=== PATIENT | female | born 1935 | race Caucasian/White ===

== ENCOUNTER 2016-07-22 10:33 | Emergency (ER) | payer OTHER ==
--- NOTE | 2016-07-22 11:10 | EDPHY ---
H & P Stated Complaint: enrico falls "off balance" r shoulder r leg pain on eliquis Time Seen by Provider: 07/22/16 10:52 HPI/ROS: CHIEF COMPLAINT: Fall HISTORY OF PRESENT ILLNESS: The patient is an 80-year-old female who comes to the emergency department after a fall last night. She is complaining of right rib and right hip pain. She states that hurts to take a deep breath return. She has been ambulatory. She also had a fall 2 weeks ago and has residual left shoulder pain. She is not able to lift her shoulder above 90 degrees without significant pain. No weakness or numbness. 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 Her daughter states that this is the 4th time she has fallen in last year. She did not hit her head. She did not lose consciousness. She does not have a headache or neck pain. REVIEW OF SYSTEMS: Constitutional: denies: chills, fever, recent illness, recent injury EENTM: denies: blurred vision, double vision, nose congestion Respiratory: denies: cough, shortness of breath Cardiac: denies: chest pain, irregular heart rate, lightheadedness, palpitations Gastrointestinal/Abdominal: denies: abdominal pain, diarrhea, nausea, vomiting, blood streaked stools Genitourinary: denies: dysuria, frequency, hematuria, pain Musculoskeletal: See HPI Skin: denies: lesions, rash, jaundice, bruising Neurological: denies: headache, numbness, paresthesia, tingling, dizziness, weakness Hematologic/Lymphatic: denies: blood clots, easy bleeding, easy bruising Immunologic/allergic: denies: HIV/AIDS, transplant EXAM: GENERAL: Well-appearing, well-nourished and in no acute distress. HEAD: Atraumatic, normocephalic. EYES: Pupils equal round and reactive to light, extraocular movements intact, sclera anicteric, conjunctiva are normal. ENT: TMs normal, nares patent, oropharynx clear without exudates. Moist mucous membranes. NECK: Normal range of motion, supple without lymphadenopathy or JVD. LUNGS: Breath sounds clear to auscultation bilaterally and equal. No wheezes rales or rhonchi. HEART: Regular rate and rhythm without murmurs, rubs or gallops. ABDOMEN: Soft, nontender, normoactive bowel sounds. No guarding, no rebound. No masses appreciated. BACK: No CVA tenderness, no spinal tenderness, step-offs or deformities EXTREMITIES: Pain with elevation of left shoulder. No pain with passive movement. Pain with palpation of right lateral rib cage, no hip pain with palpation or range of motion. NEUROLOGICAL: Cranial nerves II through XII grossly intact. Normal speech, normal gait. 5/5 strength, normal movement in all extremities, normal sensation PSYCH: Normal mood, normal affect. SKIN: Warm, dry, normal turgor, no visible rashes or lesions. Source: Patient, Family Exam Limitations: No limitations - Personal History Current Tetanus/Diphtheria Vaccine: Yes - Medical/Surgical History Hx Asthma: No Hx Chronic Respiratory Disease: No Hx Diabetes: No Hx Cardiac Disease: No Hx Renal Disease: No Hx Cirrhosis: No Hx Alcoholism: No Hx HIV/AIDS: No Hx Splenectomy or Spleen Trauma: No Other PMH: DEGENERATIVE JOINTS/PAIN, arthritis, chronic diarrhea, hypothyroid, L knee replacement, neck/spine surgery, glaucoma, hands reconstructed, appendectomy, glaucoma, bronchial problems, depression, hyperlipidemia/PE - Family History Significant Family History: No pertinent family hx - Social History Smoking Status: Never smoked Alcohol Use: Sober Drug Use: None Constitutional: Initial Vital Signs Temperature (C) 36.8 C 07/22/16 10:38 Heart Rate 75 07/22/16 10:38 Respiratory Rate 18 07/22/16 10:38 Blood Pressure 136/68 H 07/22/16 10:38 O2 Sat (%) 93 07/22/16 10:38 O2 Delivery Mode Room Air Allergies/Adverse Reactions: celecoxib [From Celebrex] Allergy (Severe, Verified 07/22/16 10:36) Hives Penicillins Allergy (Unknown, Verified 07/22/16 10:36) Home Medications: Medication Instructions Recorded Calcium [HI-LUIS M] 500 mg PO DAILY 08/23/15 Cholecalciferol Vit D3 [Vitamin D3 1,000 units PO DAILY 08/23/15 (*)] Fluticasone Propionate [Flovent 50 mcg IH BID 08/23/15 Diskus] Gabapentin [Neurontin 100 MG (*)] 500 mg PO DAILY18 08/23/15 Levothyroxine [Synthroid 112 mcg 112 mcg PO DAILY06 08/23/15 (*)] Loperamide HCl [Anti-Diarrhea] 2 mg PO Q4 PRN 08/23/15 Loratadine/Pseudoephedrine 1 each PO DAILY 08/23/15 [Claritin-D 12 Hour Tablet] Melatonin [Melatonin 3 MG (*)] 3 mg PO HS 08/23/15 Multivitamins [Multivitamin (*)] 1 each PO DAILY 08/23/15 Simvastatin [Zocor] 40 mg PO HS 08/23/15 traMADol [Ultram 50 mg (*)] 100 mg PO TID PRN 08/23/15 FLUoxetine [Prozac 10 MG (*)] 30 mg PO DAILY 08/24/15 Atomoxetine HCl [Strattera] 10 mg PO DAILY 12/27/15 Bimatoprost 0.01% [Lumigan 0.01% 1 drops EACHEYE HS 12/27/15 (*)] Budesonide [Uceris] 9 mg PO DAILY 12/27/15 Fluticasone Nasal [Flonase Nasal 1 sprays NASAL HS 12/27/15 [place]] Apixaban [Eliquis] 5 mg PO BID #0 tab 01/01/16 Apixaban [Eliquis] 10 mg PO BID #24 tab 01/01/16 oxyCODONE IR [Oxycodone Ir (*)] 5 - 10 mg PO Q6 PRN #10 tab 01/01/16 Medical Decision Making - Diagnostics Imaging: X-ray: chest x-ray was obtained. I viewed the images myself on the PACS system. My interpretation of the images is: Right-sided rib fractures. The radiologist interpretation is right-sided rib fractures. X-ray: Left shoulder x-ray was obtained. I viewed the images myself on the PACS system. My interpretation of the images is: Negative for acute injury. The radiologist interpretation is consistent with rotator cuff injury. X-ray: Right hip x-ray was obtained. I viewed the images myself on the PACS system. My interpretation of the images is: Concerning for possible occult hip fracture. The radiologist interpretation is concerning for possible occult hip fracture. Results: CT scan of the hip was obtained. The results of the study are negative. The study was read by Dr. Landeros. I viewed the images myself on the PACS system. X-ray: Left foot x-ray was obtained. I viewed the images myself on the PACS system. My interpretation of the images is: negative for acute disease . The radiologist interpretation is negative. X-ray: Repeat chest x-ray was obtained. I viewed the images myself on the PACS system. My interpretation of the images is: No sign of hemothorax or pneumothorax. The radiologist interpretation is pending. ED Course/Re-evaluation: 1:[address] p[address] we discussed the CT results and the patient is relieved. She has been able to ambulate and go to the bathroom here in the emergency department although she did began complaining of left lateral foot pain pay she states that is hurt for the last 2 weeks since her previous fall. Will obtain x-rays with this as well. 2:15 p.m. we discussed the foot x-ray. The patient is doing well and is eager to go home. She takes tramadol at home for pain as well as Tylenol. I advised her to return if her pain is not controlled or if she develops a fever pneumonia symptoms. Her in her daughter agree with this plan. They declined admission although it was offered. She is motivated to do well at home. 2:20 p.m. I discussed the case with Dr. Marii Peña. She recommended a repeat chest x-ray to rule out hemothorax and if it is negative the patient may go home and follow up with her in the clinic. Patient family agreeable to this plan. 3:00 p.m. we discussed the repeat x-ray results. The patient and family are happy and eager to go home. Differential Diagnosis: Partial list of the Differential diagnosis considered include but were not limited to; rib fracture, pneumothorax, hip fracture, shoulder injury and although unlikely based on the history and physical exam, I also considered acute coronary disease, PE, syncope, head injury, neck injury. I discussed these differential diagnoses and the plan with the patient as well as the usual and expected course. The patient understands that the diagnosis is provisional and that in medicine we are not always correct and that further workup is often warranted. Usual and customary warnings were given. All of the patient's questions were answered. The patient was instructed to return to the emergency department should the symptoms at all worsen or return, otherwise to followup with the physician as we discussed. Departure - Departure Disposition: Home, Routine, Self-Care Clinical Impression: Rib fractures Qualifiers: Encounter type: initial encounter Rib fracture type: multiple ribs Fracture type: closed Laterality: right Qualifier Code: (S22.41XA) Multiple fractures of ribs, right side, initial encounter for closed fracture Condition: Fair Instructions: Rib Fracture in Children (ED), Rib Fracture (ED) Referrals: Yessi Sampson MD [Primary Care Provider] - As per Instructions Marii Peña MD [Medical Doctor] - As per Instructions
--- NOTE | 2016-07-22 11:51 | DX ---
Right Hip , 2 views History: Pain post trauma. Fall last night. Comparison: December 31, 2015 AP pelvis Findings: There is a subtle cortical step-off of the lateral right humeral head that may possibly ind icate a nondisplaced subcapital hip fracture. The femoral head remains rounded and normally located. No pelvic ring or acetabular fracture or hip joint dislocation is identified. There is severe degener ative or remote posttraumatic change along low left lumbar spine at the lumbosacral junction and invo lving the L4-L5 disk space, that are stable since December 31, 2015. Impression: Possible subtle right subcapital hip fracture. Consider CT or MRI for further evaluation. Results called to Logan Oates at 1147 a.m.
--- NOTE | 2016-07-22 12:00 | DX ---
1. Left Shoulder , 3 Views History: Pain post trauma. Fall. Findings: The humeral head is superiorly subluxed in the glenoid and associated with eburnation of th e undersurface of the acromium, consistent with a chronic large rotator cuff tear. There is a large h ypertrophic ridge involving the medial humeral head. The AC joint is normally aligned. No fracture is identified. Impression: 1. No fracture. 2. Superior shoulder subluxation consistent with chronic rotator cuff insufficiency. 2. Chest and Right Ribs (3 views ) History: Pain post trauma. Fall. Findings: PA chest - No evidence of pneumothorax, pleural effusion or pulmonary contusion. The medias tinum is not widened. No obvious rib fracture is identified. There is orthopedic fusion hardware over lying the cervical spine. Right ribs, 2 views-There is buckling of the right lateral 6, 7 and 8th ribs.. There is severe osteoa rthritic narrowing of the right shoulder joint associated with inferior right humeral head osteophyte formation and [id number] of the humeral head and the undersurface of the acromium consistent with rotator cuff insufficiency of uncertain chronicity. There is no eburnation or sclerosis of the acromi um. Impression: 1. Right rib fractures of undetermined age. 2. Right shoulder osteoarthritis with indeterminate age rotator cuff insufficiency.
[2016-07-22 13:26] VITALS: PULSE 82
--- NOTE | 2016-07-22 13:41 | CT ---
CT Pelvis, without contrast, 13:15 History: Right hip pain post fall, possible subtle subcapital right hip fracture Comparison: Plain film x-rays done earlier at 1052 a.m. Findings: No hip or pelvic fracture is identified. There is some mild asymmetrical edema in the fat d eep to the right tensor fascia antoinette. There is no significant hip joint effusion. The pelvic ring is i ntact. There is no pelvic hematoma. There is no SI joint or pubic symphysis malalignment. There is de generative change of the pubic symphysis. There is remote posttraumatic, postoperative and degenerati ve change of the lumbosacral junction and facets. There is mild sigmoid diverticulosis. Impression: No hip fracture identified. Results called to Dr. Oates at 1:38 p.m.
--- NOTE | 2016-07-22 14:04 | DX ---
Left Foot , Three History: Lateral pain x3 weeks post trauma. Fall. Findings: No subacute or healing fracture or malalignment is identified. There is a dorsal calcaneal spur. There is hypertrophic change of the dorsal midfoot. There is degenerative change of the joint b etween the navicular and the 1st cuneiform bone. There is soft tissue calcification superior to the d istal talus. Impression: Chronic degenerative change. Nothing acute or subacute identified to explain lateral pain .
--- NOTE | 2016-07-22 15:02 | DX ---
Chest, PA and Lateral History: Chest trauma, evaluate for hemothorax, pain, fall Comparison: February 15, 2016 Findings: A prior posterior plate of atelectasis has cleared. There is no pneumothorax, pleural fluid , pulmonary contusion or pneumothorax. There is no mediastinal widening or cardiomegaly. There is chr onic tortuosity of the descending thoracic aorta. No rib fracture is identified. There is a chronic t horacolumbar scoliosis with multilevel thoracic degenerative disk disease. There is orthopedic fusion hardware overlying the cervical spine. Both shoulders are superior subluxed relative to the glenoids suggesting rotator cuff insufficiency. Impression: No acute posttraumatic abnormality identified.
[2016-07-22 15:09] VITALS: BP 137/64; RESP 20; TEMP 98.6; O2SAT 94
== END 2016-07-22 15:21 | disposition home or self-care (01) ==
DX: S22.41XA Multiple fractures of ribs, right side, initial encounter for closed fracture (principal); W18.39XA Other fall on same level, initial encounter

== ENCOUNTER → 2016-07-24 | Outpatient (CLI) | payer OTHER ==
--- NOTE | 2016-07-24 10:39 | US ---
Ultrasound Venous Duplex Doppler - Bilateral Legs at 0 948 hours History: I 26.99, previous deep venous thrombosis. Comparison: Ultrasound December 2015 Findings: Ultrasound venous Duplex and Doppler imaging of the bilateral common femoral veins, femoral veins, popliteal veins, calf veins, and greater saphenous vein origins demonstrates normal compressi bility, Duplex color-flow, Doppler flow without deep venous thrombosis. No residual deep venous throm bosis. The right Hollis's cyst measuring 2.4 x 1.8 x 1.2 cm noted. Impression: 1. No deep venous thrombosis bilateral legs. 2. Right Hollis's cyst.
== END ==
LOC: BMCIMAGING 09:08
PROVIDERS: ATTEND Internal Medicine
DX: Z09 Encounter for follow-up examination after completed treatment for conditions other than malignant neoplasm (principal); Z86.718 Personal history of other venous thrombosis and embolism; M71.21 Synovial cyst of popliteal space [Baker], right knee

== ENCOUNTER → 2016-08-17 | Outpatient (CLI) | payer OTHER | LOC: BMCIMAGING 14:31 | PROVIDERS: ATTEND Physician Assistant | DX: R19.7 Diarrhea, unspecified (principal); M51.36 Other intervertebral disc degeneration, lumbar region; M16.9 Osteoarthritis of hip, unspecified ==

== ENCOUNTER 2016-09-03 04:58 | Inpatient (IN) | payer OTHER ==
--- NOTE | 2016-09-03 06:39 | EDPHY ---
H & P Stated Complaint: fall and reports hitting head, AMS, from [facility] Source: Patient, EMS, Old records - Personal History Current Tetanus/Diphtheria Vaccine: Unsure Current Tetanus Diphtheria and Acellular Pertussis (TDAP): Unsure - Medical/Surgical History Hx Asthma: No Hx Chronic Respiratory Disease: No Hx Diabetes: No Hx Cardiac Disease: No Hx Renal Disease: No Hx Cirrhosis: No Hx Alcoholism: No Hx HIV/AIDS: No Hx Splenectomy or Spleen Trauma: No Other PMH: DEGENERATIVE JOINTS/PAIN, arthritis, chronic diarrhea, hypothyroid, L knee replacement, neck/spine surgery, glaucoma, hands reconstructed, appendectomy, glaucoma, bronchial problems, depression, hyperlipidemia/PE - Social History Smoking Status: Never smoked <Gay Morton - Last Filed: 09/03/16 07:38> <Annette Chavez - Last Filed: 09/04/16 14:31> Time Seen by Provider: 09/03/16 05:09 HPI/ROS: HPI The patient presents brought in by ambulance after a fall in which she hit her head. She lives at [facility] in independent living. Apparently tonight before going to bed she took tramadol hand Valium. She was unable to fall asleep so she took an additional pill of Valium. She got up to go to the bathroom on the phone fell and hit her head. She denies losing any consciousness. She pressed her medical alert button and 911 was called. She has not had any nausea, vomiting, vision changes. She does feel very tired. REVIEW OF SYSTEMS Constitutional: No fever, no chills. Eyes: No discharge. ENT: No sore throat. Cardiovascular: No chest pain, no palpitations. Respiratory: No cough, no shortness of breath. Gastrointestinal: No abdominal pain, no vomiting. Genitourinary: No hematuria. Musculoskeletal: No back pain. Skin: No rashes. Neurological: No headache. PMHx: Frequent falls, was previously on Eliquis though now is not on any anticoagulants Soc Hx: Lives in an independent living facility PHYSICAL General Appearance: Somewhat sleepy, no distress Eyes: Pupils equal and round no pallor or injection ENT, Mouth: Mucous membranes moist Respiratory: There are no retractions, lungs are clear to auscultation Cardiovascular: Regular rate and rhythm Gastrointestinal: Abdomen is soft and non-tender, no masses, bowel sounds normal Neurological: A&O, moves all extremities Skin: Warm and dry, no rashes Musculoskeletal: Neck is supple non tender Extremities: symmetrical, full range of motion Psychiatric: Patient is oriented X 3, there is no agitation (Gay Morton) Constitutional: Initial Vital Signs Temperature (C) 36.8 C 09/03/16 05:20 Heart Rate 82 09/03/16 05:20 Respiratory Rate 14 09/03/16 05:20 Blood Pressure 125/70 H 09/03/16 05:20 O2 Sat (%) 94 09/03/16 05:20 O2 Delivery Mode Nasal Cannula O2 (L/minute) 2 Allergies/Adverse Reactions: celecoxib [From Celebrex] Allergy (Severe, Verified 07/22/16 10:36) Hives Penicillins Allergy (Unknown, Verified 07/22/16 10:36) Home Medications: Medication Instructions Recorded Fluticasone Propionate [Flovent 100 mcg IH BID 08/23/15 Diskus] Gabapentin [Neurontin 100 MG (*)] 500 mg PO HS 08/23/15 traMADol [Ultram 50 mg (*)] 50 mg PO Q4 PRN 08/23/15 Aspirin [Aspirin 81mg (*)] 81 mg PO DAILY 09/03/16 Bimatoprost 0.01% [Lumigan 0.01% 1 drops EACHEYE HS 09/03/16 (*)] Budesonide [Uceris] 9 mg PO DAILY 09/03/16 Eluxadoline [Viberzi] 100 mg PO BID 09/03/16 Herbals/Supplements -Info Only 1 ea PO DAILY 09/03/16 Levothyroxine [Synthroid 100 mcg 100 mcg PO DAILY06 09/03/16 (*)] Multivitamins [Multivitamin (*)] 1 each PO DAILY 09/03/16 Simvastatin 40 mg PO HS 09/03/16 Zolpidem Tartrate [Ambien 5MG (*)] 5 - 10 mg PO HS PRN 09/03/16 Medical Decision Making <Gay Morton - Last Filed: 09/03/16 07:38> <Annette Chavez - Last Filed: 09/04/16 14:31> - Diagnostics EKG Interpretation: EKG: Complete interpretation has been separately recorded in the [facility] archive. Summary impression: Normal sinus rhythm (Gay Morton) Imaging: CT head shows no acute injury, discussed with Dr. Dobbins of Radiology. (Gay Morton) ED Course/Re-evaluation: 6:40 a.m.- The patient was re-evaluated, she continues to feel sleepy though is oriented. Her CT head is unremarkable. We will continue to monitor her. 7:00 a.m.- The patient's daughter is now at the bedside. She says that the patient has had a cough for the last day and said that she felt unwell. I will plan on checking some basic lab testing given this information. I feel her symptoms are likely related to her taking too much of her sleeping medication which turns out is Ambien it appears she had 10 mg instead of her usual 5. She actually did not take Valium. (Gay Morton) 0927: Re-evaluation. Patient is somewhat more alert, but is still drowsy. She is answering questions, but then quickly falls back to sleep. She desaturates to 89% off of oxygen. Placed back on 2L. Still too drowsy for discharge safely. 1110: Re-evaluation. The patient is still very drowsy, too drowsy to return to home safely. Oxygen saturation is 93% on 2L. The patient and her daughter believe that she took an extra Ambien last night. Will admit the patient for further observation. 1118: I consulted with the hospitalist service about the patient's condition. Dr. Ruiz accepts admission. 1124: I called Dr. Akhtar for report of the patient's chest CT. Preliminary report by Dr. Dobbins was negative. (Annette Chavez) Differential Diagnosis: This is an 80-year-old female brought in by ambulance from independent living facility after a fall while using the bathroom tonight. She hit her head. She has a history of frequent falls and did take an extra dose of her Valium earlier in the evening. Differential diagnosis includes intracranial hemorrhage , concussion, medication side effect. (Gay Morton) - Data Points Laboratory Results: Laboratory Results 09/04/16 04:51 09/04/16 04:51 09/04/16 09/04/16 09/03/16 04:51 04:51 15:28 WBC 5.63 10^3/uL 10^3/uL (3.80-9.50) RBC 3.87 10^6/uL L 10^6/uL (4.18-5.33) Hgb 11.9 g/dL L g/dL (12.6-16.3) Hct 36.7 % L % (38.0-47.0) MCV 94.8 fL fL (81.5-99.8) MCH 30.7 pg pg (27.9-34.1) MCHC 32.4 g/dL g/dL (32.4-36.7) RDW 13.7 % % (11.5-15.2) Plt Count 195 10^3/uL 10^3/uL (150-400) MPV 10.2 fL fL (8.7-11.7) Neut % (Auto) 57.3 % % (39.3-74.2) Lymph % (Auto) 23.4 % % (15.0-45.0) Lane % (Auto) 17.1 % H % (4.5-13.0) Eos % (Auto) 1.6 % % (0.6-7.6) Baso % (Auto) 0.4 % % (0.3-1.7) Nucleat RBC Rel Count 0.0 % % (0.0-0.2) Absolute Neuts (auto) 3.23 10^3/uL 10^3/uL (1.70-6.50) Absolute Lymphs (auto) 1.32 10^3/uL 10^3/uL (1.00-3.00) Absolute Monos (auto) 0.96 10^3/uL H 10^3/uL (0.30-0.80) Absolute Eos (auto) 0.09 10^3/uL 10^3/uL (0.03-0.40) Absolute Basos (auto) 0.02 10^3/uL 10^3/uL (0.02-0.10) Absolute Nucleated RBC 0.00 10^3/uL 10^3/uL (0-0.01) Immature Gran % 0.2 % % (0.0-1.1) Immature Gran # 0.01 10^3/uL 10^3/uL (0.00-0.10) Sodium 140 mEq/L mEq/L (134-144) Potassium 3.7 mEq/L mEq/L (3.5-5.2) Chloride 109 mEq/L mEq/L (97-110) Carbon Dioxide 22 mEq/l mEq/l (22-31) Anion Gap 9 mEq/L mEq/L (8-16) BUN 12 mg/dL mg/dL (7-23) Creatinine 1.0 mg/dL mg/dL (0.6-1.0) Estimated GFR 53 Glucose 104 mg/dL H mg/dL (70-100) Calcium 8.1 mg/dL L D mg/dL (8.5-10.4) Resp Viral Panel (PCR) SEE COMMENT Microbiology Results: MICROBIOLOGY 09/03/16 14:17 Urine,Clean Catch Urine Culture - Preliminary Five Or More Norman Types Medications Given: Discontinued Medications Budesonide (Entocort Ec) 9 mg PO DAILY SEVEN Stop: 03/03/17 08:59 Last Admin: 09/04/16 08:27 Dose: 9 mg Heparin Sodium (Porcine) (Heparin Sc Injection) 5,000 unit SC Q8 SEVEN Stop: 03/02/17 13:59 Last Admin: 09/04/16 05:19 Dose: 5,000 unit Sodium Chloride (Ns) 1,000 mls @ 150 mls/hr IV CONT SEVEN Stop: 03/02/17 12:29 Last Admin: 09/04/16 03:18 Dose: 1,000 mls Zolpidem Tartrate (Ambien) 5 mg PO HS SEVEN Stop: 03/02/17 20:59 Last Admin: 09/04/16 01:15 Dose: Not Given Departure <Gay Morton - Last Filed: 09/03/16 07:38> <Annette Chavez - Last Filed: 09/04/16 14:31> - Departure Disposition: [facility] Inpatient Acute Clinical Impression: Fall Qualifiers: Encounter type: initial encounter Qualified Code(s): W19.XXXA - Unspecified fall, initial encounter Head injury Qualifiers: Encounter type: initial encounter Qualified Code(s): S09.90XA - Unspecified injury of head, initial encounter Accidental medication overdose Qualifiers: Encounter type: initial encounter Qualified Code(s): T50.901A - Poisoning by unspecified drugs, medicaments and biological substances, accidental ( unintentional), initial encounter Condition: Fair Report Scribed for: Annette Chavez Report Scribed by: Kenyatta Bolden Date of Report: 09/03/16 Time of Report: 09:28 <Annette Chavez - Last Filed: 09/04/16 14:31>
--- NOTE | 2016-09-03 06:58 | CPEKG ---
Heart Rate: 76 RR Interval: 789 P-R Interval: 176 QRSD Interval: 102 QT Interval: 392 QTC Interval: 441 P Bang[place]: 50 QRS [place]: 7 T Wave [place]: 23 EKG Severity - NORMAL ECG - EKG Impression: SINUS RHYTHM Electronically Signed By: Annette Chavez 03-Sep-2016 11:59:20
[2016-09-03 06:59] LABS: % IMMATURE GRANULYOCYTES 0.2 % (0.0-1.1); ABSOLUTE IMMATURE GRANULOCYTES 0.01 10^3/uL (0.00-0.10); ADD DIFF? NO; ADD MORPH? NO; ADD SCAN? NO; ATYPICAL LYMPHOCYTE FLAG 30 (0-99); FRAGMENT RBC FLAG 0 (0-99); HEMATOCRIT 43.3 % (38.0-47.0); HEMOGLOBIN 13.9 g/dL (12.6-16.3); LEFT SHIFT FLG 0 (0-99); LIPEMIA HEMOLYSIS FLAG 80 (0-99); MEAN CELL HEMOGLOBIN CONCENTR. 32.1 g/dL (32.4-36.7); MEAN CELL VOLUME 93.3 fL (81.5-99.8); MEAN PLATELET VOLUME 10.5 fL (8.7-11.7); PLATELET CLUMPS FLAG 0 (0-99); PLATELET COUNT 240 10^3/uL (150-400); RED BLOOD CELL COUNT 4.64 10^6/uL (4.18-5.33); RED CELL DISTRIBUTION WIDTH 13.9 % (11.5-15.2)
[2016-09-03 07:06] LABS: ALANINE AMINOTRANSFERASE 36 IU/L (9-52); ALBUMIN 4.3 g/dL (3.5-5.0); ALKALINE PHOSPHATASE 75 IU/L (38-126); ANION GAP 13 mEq/L (8-16); ASPARTATE AMINOTRANSFERASE 27 IU/L (14-46); BILIRUBIN,TOTAL 0.7 mg/dL (0.1-1.4); CALCIUM 9.7 mg/dL (8.5-10.4); CARBON DIOXIDE 24 mEq/l (22-31); CHLORIDE 104 mEq/L (97-110); CREATININE 1.2 mg/dL (0.6-1.0); GLOMERULAR FILTRATION RATE 43; GLUCOSE 96 mg/dL (70-100); POTASSIUM 4.2 mEq/L (3.5-5.2); SODIUM 141 mEq/L (134-144); TOTAL PROTEIN 7.3 g/dL (6.3-8.2)
[2016-09-03 07:17] LABS: TROPONIN I < 0.012 ng/mL (0-0.034)
[2016-09-03] MEDS ORDERED: ONDANSETRON DISINTEGRATING 4 MG TAB PO PRN (12:16)
[2016-09-03] MEDS ORDERED: ONDANSETRON 4 MG/2 ML VIAL IVP PRN (12:16)
[2016-09-03 14:16] LABS: COLOR YELLOW; LEUKOCYTE ESTERASE,URINE 2+ (NEGATIVE); NITRITE,URINE NEGATIVE (NEGATIVE)
[2016-09-03 14:20] LABS: BACTERIA TRACE /hpf (NONE SEEN); MUCUS TRACE /lpf (NONE-1+)
[2016-09-03] MEDS ORDERED: traMADol 50 MG TAB PO PRN (14:56)
[2016-09-03] MEDS ORDERED: LIDOCAINE 2% VISCOUS 15 ML UDCUP PO PRN (14:56)
[2016-09-03] MEDS ORDERED: FLUTICASONE PROPIONATE 100 MCG IH SCH (15:00)
[2016-09-03] MEDS ORDERED: ELUXADOLINE 100 MG PO SCH (15:00)
[2016-09-03] MEDS ORDERED: BUDESONIDE 9 MG PO SCH (15:00)
--- NOTE | 2016-09-03 15:01 | PDGENHP ---
History and Physical - Chief Complaint Acute encephalopathy - History of Present Illness Primary care provider: Dr. Sampson HPI: 80-year-old female presenting with acute encephalopathy characterized as somnolence, disorientation, poor responsiveness with associated mechanical fall , pain located in her bilateral shoulders, left greater than right. Patient reports that on the day prior to this presentation, she began feeling fatigued, experiencing soreness in her throat, nonproductive cough, mild dysuria. She had shoulder pain which she took tramadol 50 mg to alleviate and then she attempted to go to bed. On 09/02 p.m., she had difficulty falling asleep and she subsequently took 10 mg of Ambien. The patient reports that she does not take Ambien regularly but has taken it in the past as a sleep aid, usually 5 mg. Overnight, the patient attempted to use the bathroom and she experienced acute mechanical fall. She contacted the medical staff at [facility] the patient was transported to our emergency department. At that time, she was minimally responsive and her level of responsiveness has been improving throughout the course of today. History Information - Allergies/Home Medication List Allergies/Adverse Reactions: celecoxib [From Celebrex] Allergy (Severe, Verified 07/22/16 10:36) Hives Penicillins Allergy (Unknown, Verified 07/22/16 10:36) Home Medications: Fluticasone Propionate [Flovent Diskus] 100 mcg IH BID 08/23/15 [Last Taken 12/01 21:00] Gabapentin [Neurontin 100 MG (*)] 500 mg PO HS 08/23/15 [Last Taken 08/22/15 18: 00] traMADol [Ultram 50 mg (*)] 50 mg PO Q4 PRN 08/23/15 [Last Taken 12/27/15] Aspirin [Aspirin 81mg (*)] 81 mg PO DAILY 09/03/16 [Last Taken Unknown] Bimatoprost 0.01% [Lumigan 0.01% (*)] 1 drops EACHEYE HS 09/03/16 [Last Taken Unknown] Budesonide [Uceris] 9 mg PO DAILY 09/03/16 [Last Taken Unknown] Eluxadoline [Viberzi] 100 mg PO BID 09/03/16 [Last Taken Unknown] Herbals/Supplements -Info Only 1 ea PO DAILY 09/03/16 [Last Taken Unknown] Levothyroxine [Synthroid 100 mcg (*)] 100 mcg PO DAILY06 09/03/16 [Last Taken Unknown] Multivitamins [Multivitamin (*)] 1 each PO DAILY 09/03/16 [Last Taken Unknown] Simvastatin 40 mg PO HS 09/03/16 [Last Taken Unknown] Zolpidem Tartrate [Ambien 5MG (*)] 5 - 10 mg PO HS PRN 09/03/16 [Last Taken Unknown] I have personally reviewed and updated: family history, medical history, social history, surgical history - Past Medical History Additional medical history: Pulmonary embolism and deep venous thrombosis in December of 2015 with 6 subsequent months of Eliquis and then discontinued after negative lower extremity ultrasound in July of 2016 as well as numerous mechanical falls. Nocturnal hypoxia. Glaucoma. Chronic diarrhea. Osteoarthritis, left greater than right shoulder - Surgical History Additional surgical history: Next surgery, spine surgery, left total knee replacement, breast lumpectomy - Family History Additional family history: Venous thromboembolism - Social History Smoking Status: Never smoked Alcohol Use: Occasionally Drug Use: None Additional social history: Lives in the [facility] Review of Systems ROS: 10pt was reviewed & negative except for what was stated in HPI & below Constitutional: Reports: fever, malaise, weakness EENMT: Reports: sore throat Respiratory: Reports: cough Genitourinary: Reports: dysuria Physical Exam Temp Pulse Resp BP Pulse Ox 38 C 97 19 139/79 H 94 09/03/16 14:42 09/03/16 14:42 09/03/16 14:42 09/03/16 12:17 09/03/16 14:42 O2 (L/minute) 2 Constitutional: no apparent distress, appears nourished, uncomfortable Eyes: PERRL, anicteric sclera, EOMI Ears, Nose, Mouth, Throat: moist mucous membranes, hearing normal, ears appear normal, no oral mucosal ulcers Cardiovascular: tachycardia, No systolic murmur, No irregularly irregular, No edema Respiratory: no respiratory distress, no rales or rhonchi, clear to auscultation , other (No upper airway stridor or wheezing) Gastrointestinal: normoactive bowel sounds, soft, non-tender abdomen, no palpable masses Genitourinary: no bladder fullness, No no bladder tenderness (Suprapubic tenderness to palpation) Skin: warm, normal color, no rashes or abrasions, no fluctuance, no induration, No mottled Neurologic: sensation intact bilaterally, other (Alert awake oriented x2 to person and place only), No weakness (Motor strength 5/5 bilateral upper and lower extremities), No facial droop Psychiatric: other (Lethargic but arousable, concentration is 7/7), No not anxious, No agitated (Lethargic but arousable) Lymph, Heme, Immunologic: other (Tender bilateral anterior cervical lymph nodes without any lymphadenopathy or posterior cervical lymph nodes) Lab Data & Imaging Review 09/03/16 05:15 09/03/16 05:15 WBC 5.93 10^3/uL (3.80-9.50) 09/03/16 05:15 RBC 4.64 10^6/uL (4.18-5.33) 09/03/16 05:15 Hgb 13.9 g/dL (12.6-16.3) 09/03/16 05:15 Hct 43.3 % (38.0-47.0) 09/03/16 05:15 MCV 93.3 fL (81.5-99.8) 09/03/16 05:15 MCH 30.0 pg (27.9-34.1) 09/03/16 05:15 MCHC 32.1 g/dL (32.4-36.7) L 09/03/16 05:15 RDW 13.9 % (11.5-15.2) 09/03/16 05:15 Plt Count 240 10^3/uL (150-400) 09/03/16 05:15 MPV 10.5 fL (8.7-11.7) 09/03/16 05:15 Neut % (Auto) 59.2 % (39.3-74.2) 09/03/16 05:15 Lymph % (Auto) 24.1 % (15.0-45.0) 09/03/16 05:15 Braxton % (Auto) 13.2 % (4.5-13.0) H 09/03/16 05:15 Eos % (Auto) 3.0 % (0.6-7.6) 09/03/16 05:15 Baso % (Auto) 0.3 % (0.3-1.7) 09/03/16 05:15 Nucleat RBC Rel Count 0.0 % (0.0-0.2) 09/03/16 05:15 Absolute Neuts (auto) 3.51 10^3/uL (1.70-6.50) 09/03/16 05:15 Absolute Lymphs (auto) 1.43 10^3/uL (1.00-3.00) 09/03/16 05:15 Absolute Monos (auto) 0.78 10^3/uL (0.30-0.80) 09/03/16 05:15 Absolute Eos (auto) 0.18 10^3/uL (0.03-0.40) 09/03/16 05:15 Absolute Basos (auto) 0.02 10^3/uL (0.02-0.10) 09/03/16 05:15 Absolute Nucleated RBC 0.00 10^3/uL (0-0.01) 09/03/16 05:15 Immature Gran % 0.2 % (0.0-1.1) 09/03/16 05:15 Immature Gran # 0.01 10^3/uL (0.00-0.10) 09/03/16 05:15 Sodium 141 mEq/L (134-144) 09/03/16 05:15 Potassium 4.2 mEq/L (3.5-5.2) 09/03/16 05:15 Chloride 104 mEq/L (97-110) 09/03/16 05:15 Carbon Dioxide 24 mEq/l (22-31) 09/03/16 05:15 Anion Gap 13 mEq/L (8-16) 09/03/16 05:15 BUN 21 mg/dL (7-23) 09/03/16 05:15 Creatinine 1.2 mg/dL (0.6-1.0) H 09/03/16 05:15 Estimated GFR 43 09/03/16 05:15 Glucose 96 mg/dL (70-100) 09/03/16 05:15 Calcium 9.7 mg/dL (8.5-10.4) 09/03/16 05:15 Total Bilirubin 0.7 mg/dL (0.1-1.4) 09/03/16 05:15 AST 27 IU/L (14-46) 09/03/16 05:15 ALT 36 IU/L (9-52) 09/03/16 05:15 Alkaline Phosphatase 75 IU/L (38-126) 09/03/16 05:15 Troponin I < 0.012 ng/mL (0-0.034) 09/03/16 05:15 Total Protein 7.3 g/dL (6.3-8.2) 09/03/16 05:15 Albumin 4.3 g/dL (3.5-5.0) 09/03/16 05:15 Urine Color YELLOW 09/03/16 14:08 Urine Appearance HAZY 09/03/16 14:08 Urine pH 5.0 (5.0-7.5) 09/03/16 14:08 Ur Specific Catlett 1.025 (1.002-1.030) 09/03/16 14:08 Urine Protein NEGATIVE (NEGATIVE) 09/03/16 14:08 Urine Ketones NEGATIVE (NEGATIVE) 09/03/16 14:08 Urine Blood NEGATIVE (NEGATIVE) 09/03/16 14:08 Urine Nitrate NEGATIVE (NEGATIVE) 09/03/16 14:08 Urine Bilirubin NEGATIVE (NEGATIVE) 09/03/16 14:08 Urine Urobilinogen NEGATIVE EU (0.2-1.0) 09/03/16 14:08 Ur Leukocyte Esterase 2+ (NEGATIVE) H 09/03/16 14:08 Urine RBC 5-10 /hpf (0-3) H 09/03/16 14:08 Urine WBC 5-10 /hpf (0-3) H 09/03/16 14:08 Ur Epithelial Cells TRACE /lpf (NONE-1+) 09/03/16 14:08 Urine Bacteria TRACE /hpf (NONE SEEN) H 09/03/16 14:08 Hyaline Casts 5-15 /lpf (0-1) 09/03/16 14:08 Urine Mucus TRACE /lpf (NONE-1+) 09/03/16 14:08 Ur Culture Indicated? INDICATED (NI) H 09/03/16 14:08 Urine Glucose NEGATIVE (NEGATIVE) 09/03/16 14:08 Visualized and Interpreted EKG results: Yes EKG Interpretation: Positive for: other (Normal sinus rhythm) Assessment & Plan Assessment: 80-year-old female presents with acute encephalopathy in the setting of suspected viral syndrome, possible urinary tract infection Plan: 1. Encephalopathy. Acute, evidenced by global brain dysfunction characterized as disorientation, somnolence, unresponsiveness, acute change from patient's baseline, most likely secondary to the toxic effects of medications including Ambien as well as toxic effects of infection notably viral syndrome and possible UTI -discussed with hospitalist provider Elsa Nash, she has signed out this patient to me for evaluation at this time -head CT demonstrates no intracranial pathology -mental status remains below baseline with degree of disorientation and somnolence -unsafe to medically discharge back [facility] at this time -continue to allow time for Ambien to work of system, hold any further Ambien and reduced dose of tramadol and gabapentin 2. Suspected viral syndrome. Acute new problem this provider further workup indicated. Patient most likely has a URI with tachycardia and fever as well as sore throat and cough and no evidence of acute reactive airways -supportive care with guaifenesin/dextromethorphan, Tessalon Perles, Mucinex, IV fluids -get a respiratory viral panel to evaluate for flu -monitor CBC and monitor for signs of sepsis 3. Possible urinary tract infection. Evidenced by dysuria and mildly positive urinalysis, history of urinary tract infection back in August of 2015 -get urine culture -empirically give 1 g of IV ceftriaxone given her current tachycardia and fever 4. Acute kidney injury. Most likely hypovolemic, give IV fluids, repeat serum creatinine level 5. Atelectasis. Acute, present on chest CT, provide incentive spirometer, most likely secondary to somnolence 6. Unintentional overdose. Patient to combination of tramadol and Ambien, dose is higher than her norm, both are most likely contributing to her present mental status, reduced dosage of tramadol and gabapentin, hold Ambien 7. History of venous thromboembolism. Review of outside records including [address] Mayen, reporting patient had a pulmonary embolism secondary to deep venous thrombosis resulting in respiratory failure, requiring Eliquis. -ultrasound from July of 2016 demonstrates no evidence of persistent DVT, currently off of systemic anticoagulation given high risk of falls Diet. Regular Prophylaxis. High risk patient, heparin subcu Code. Full per patient, her daughter is her MPOA Disposition. Anticipated discharge is 09/04/2016, pending further workup of conditions outlined above as well as clinical improvement. If patient's clinical condition worsens, she will be reassessed on 09/04 and may require upgraded to inpatient admission status at that time.
[2016-09-03] MEDS: HEPARIN 5,000 UNIT/0.5 ML SYR SC SCH ×2 (15:58→20:55)
[2016-09-03] MEDS: CIPROFLOXACIN 200 MG/DEXTROSE 100 ML IV SCH ×2 (15:58→20:54)
[2016-09-03] MEDS: GUAIFENESIN/DM 10 ML UDCUP PO PRN (16:35)
[2016-09-03] MEDS: guaiFENesin 600 MG TAB.ER PO SCH ×2 (16:36→20:54)
[2016-09-03] MEDS: BENZONATATE 100 MG CAP PO PRN ×2 (16:36→20:54)
[2016-09-03] MEDS: LEVOTHYROXINE 100 MCG TAB PO SCH (16:36)
[2016-09-03] MEDS: ACETAMINOPHEN 325 MG TAB PO PRN (16:37)
[2016-09-03] MEDS: FLUTICASONE HFA 110 MCG MDI IH SCH (20:27)
[2016-09-03] MEDS ORDERED: ZOLPIDEM TARTRATE 5 MG TAB PO PRN (20:50)
[2016-09-03] MEDS: GABAPENTIN 100 MG CAP PO SCH (20:54)
[2016-09-03] MEDS: ATORVASTATIN CALCIUM 20 MG TAB PO SCH (20:54)
[2016-09-03] MEDS: NS 1,000 ML IV SCH (20:57)
[2016-09-03] MEDS ORDERED: NON-FORMULARY NEW DRUG (Simvastatin [Simvastatin] 40 MG) PO SCH (21:00)
[2016-09-03] MEDS ORDERED: ZOLPIDEM TARTRATE 5 MG TAB PO SCH (21:00)
[2016-09-03] MEDS: ELUXADOLINE 100 MG PO SCH (23:35)
[2016-09-04] MEDS: BENZONATATE 100 MG CAP PO PRN ×3 (03:17→21:11)
[2016-09-04] MEDS: GUAIFENESIN/DM 10 ML UDCUP PO PRN ×4 (03:17→21:11)
[2016-09-04] MEDS: NS 1,000 ML IV SCH (03:18)
[2016-09-04] MEDS: HEPARIN 5,000 UNIT/0.5 ML SYR SC SCH (05:19)
[2016-09-04] MEDS: LEVOTHYROXINE 100 MCG TAB PO SCH (05:19)
[2016-09-04] MEDS: ACETAMINOPHEN 325 MG TAB PO PRN ×2 (05:23→15:10)
[2016-09-04 06:06] LABS: % IMMATURE GRANULYOCYTES 0.2 % (0.0-1.1); ABSOLUTE IMMATURE GRANULOCYTES 0.01 10^3/uL (0.00-0.10); ADD DIFF? NO; ADD MORPH? NO; ADD SCAN? NO; ATYPICAL LYMPHOCYTE FLAG 20 (0-99); FRAGMENT RBC FLAG 0 (0-99); HEMATOCRIT 36.7 % (38.0-47.0); HEMOGLOBIN 11.9 g/dL (12.6-16.3); LEFT SHIFT FLG 0 (0-99); LIPEMIA HEMOLYSIS FLAG 80 (0-99); MEAN CELL HEMOGLOBIN 30.7 pg (27.9-34.1); MEAN CELL HEMOGLOBIN CONCENTR. 32.4 g/dL (32.4-36.7); MEAN CELL VOLUME 94.8 fL (81.5-99.8); MEAN PLATELET VOLUME 10.2 fL (8.7-11.7); PLATELET CLUMPS FLAG 0 (0-99); PLATELET COUNT 195 10^3/uL (150-400); RED BLOOD CELL COUNT 3.87 10^6/uL (4.18-5.33); RED CELL DISTRIBUTION WIDTH 13.7 % (11.5-15.2)
[2016-09-04 06:17] LABS: ANION GAP 9 mEq/L (8-16); CALCIUM 8.1 mg/dL (8.5-10.4); CARBON DIOXIDE 22 mEq/l (22-31); CHLORIDE 109 mEq/L (97-110); GLOMERULAR FILTRATION RATE 53; GLUCOSE 104 mg/dL (70-100); POTASSIUM 3.7 mEq/L (3.5-5.2); SODIUM 140 mEq/L (134-144)
[2016-09-04] MEDS: guaiFENesin 600 MG TAB.ER PO SCH ×2 (08:26→21:11)
[2016-09-04] MEDS: MULTIVITAMINS 1 EACH TAB PO SCH (08:26)
[2016-09-04] MEDS: ASPIRIN 81 MG CHEWABLE TAB PO SCH (08:27)
[2016-09-04] MEDS: ELUXADOLINE 100 MG PO SCH ×2 (08:47→19:05)
[2016-09-04] MEDS ORDERED: BUDESONIDE 3 MG EC CAP PO SCH (09:00)
[2016-09-04] MEDS ORDERED: Herbals/Supplements -Info Only PO SCH (09:00)
[2016-09-04] MEDS: CIPROFLOXACIN 200 MG/DEXTROSE 100 ML IV SCH ×2 (09:17→21:11)
[2016-09-04] MEDS: FLUTICASONE HFA 110 MCG MDI IH SCH ×2 (09:55→21:17)
--- NOTE | 2016-09-04 11:03 | HOSPPROG ---
Hospitalist Progress Note Assessment/Plan: Assessment: 80-year-old female presents with acute encephalopathy in the setting of RSV, possible urinary tract infection, c/b acute reactive airway exacerbation Plan: 1. Encephalopathy. Acute, most likely secondary to the toxic effects of medications including Ambien as well as toxic effects of infection -improving s/p tx for possible UTI, IVF -continue to hold ambien, lowered dose of tramadol and gabapentin in short-term 2. RSV. Positive RVP, stimulating reactive airways -supportive care 3. Acute reactive airway exacerbation. Evidenced by bilat late exp wheezes and cough triggered on expiration + hypoxia, worsening today -/ RSV -add pred 40mg daily (D#06/22), add scheduled duonebs -cont guaif/dextro PRN, sarahi PRN, tylenol for chest pain from cough 4. Possible urinary tract infection. Evidenced by dysuria and mildly positive urinalysis, history of urinary tract infection back in August of 2015 -UCx pending -day 2/3 Cipro 5. Acute kidney injury. Most likely hypovolemic, given IV fluids, resolved 6. Atelectasis. Acute, present on chest CT, provided incentive spirometer, most likely secondary to somnolence and inactivity 7. Unintentional overdose. Patient on combination of tramadol and Ambien, dose was higher than her norm, both likely contributed to presentation 8. History of venous thromboembolism. Review of outside records including [address] Mayen, reporting patient had a pulmonary embolism secondary to deep venous thrombosis resulting in respiratory failure, requiring Eliquis. -ultrasound from July of 2016 demonstrates no evidence of persistent DVT, currently off of systemic anticoagulation given high risk of falls Diet. Regular Prophylaxis. High risk patient, lovenox 40 Code. Full per patient, her daughter is her MPOA Disposition. Anticipated discharge uncertain, upgrade to inpatient admission status re: anticipated LOS > 48hrs for reasonable medical necessity including worsening acute reactive airway exacerbation today w/ high risk co-morbid RSV infxn Subjective: Reports ongoing cough overnight, anterior chest discomfort with cough, requiring physical assistance with transfers Objective: Vital Signs Temp Pulse Resp BP Pulse Ox 36.8 C 78 16 112/55 L 94 09/04/16 08:00 09/04/16 09:58 09/04/16 09:58 09/04/16 08:00 09/04/16 09:58 Laboratory Results 09/04/16 04:51 09/04/16 04:51 09/03/16 09/04/16 09/05/16 05:59 05:59 05:59 Intake Total 3350 Output Total 1700 400 Balance 1650 -400 - Time Spent With Patient Time Spent with Patient: greater than 35 minutes Time Spent with Patient: Greater than 35 minutes spent on this patients care, greater than 50% of time spent counseling, educating, and coordinating care regarding the above mentioned plan. - Physical Exam Constitutional: no apparent distress, uncomfortable Cardiovascular: regular rate and rhythym Respiratory: reduced air movement (On expiration), expiratory wheeze (Late), inspiratory crackles (Left base) Neurologic: AAOx3 Psychiatric: interacting appropriately, not anxious, not encephalopathic, thought process linear ICD10 Worksheet Patient Problems: Problems Problem Status Onset Fever Acute Confusion Acute Pneumonia Acute UTI (urinary tract infection) Acute Hypoxemia Acute Weakness Acute Pulmonary embolism Acute Troponin level elevated Acute Fall Acute Head injury Acute
[2016-09-04] MEDS: predniSONE 20 MG TAB PO SCH (11:47)
[2016-09-04] MEDS: ENOXAPARIN 40 MG/0.4 ML SYR SC SCH ×2 (11:48→14:53)
[2016-09-04] MEDS: IPRATROPIUM/ALBUTEROL 3 ML DEYVIAL IH SCH ×3 (12:21→22:05)
[2016-09-04] MEDS: GABAPENTIN 100 MG CAP PO SCH (21:11)
[2016-09-04] MEDS: ATORVASTATIN CALCIUM 20 MG TAB PO SCH (21:12)
[2016-09-04] MEDS: BIMATOPROST 0.01% 2.5 ML OPHT.BTL EACHEYE SCH (21:25)
[2016-09-05] MEDS: GUAIFENESIN/DM 10 ML UDCUP PO PRN ×5 (02:48→23:59)
[2016-09-05] MEDS: ACETAMINOPHEN 325 MG TAB PO PRN ×2 (02:48→09:53)
[2016-09-05 05:34] LABS: ANION GAP 10 mEq/L (8-16); CALCIUM 8.7 mg/dL (8.5-10.4); CARBON DIOXIDE 18 mEq/l (22-31); CHLORIDE 114 mEq/L (97-110); CREATININE 0.8 mg/dL (0.6-1.0); GLOMERULAR FILTRATION RATE > 60; GLUCOSE 118 mg/dL (70-100); POTASSIUM 3.1 mEq/L (3.5-5.2); SODIUM 142 mEq/L (134-144)
[2016-09-05] MEDS: LEVOTHYROXINE 100 MCG TAB PO SCH (05:50)
[2016-09-05] MEDS: IPRATROPIUM/ALBUTEROL 3 ML DEYVIAL IH SCH ×4 (06:10→21:59)
[2016-09-05] MEDS ORDERED: POTASSIUM CL 20 MEQ/15 ML UDCUP PO ONE (09:40)
--- NOTE | 2016-09-05 09:45 | HOSPPROG ---
Hospitalist Progress Note Assessment/Plan: 80-year-old female presents with acute encephalopathy in the setting of RSV, possible urinary tract infection, c/b acute reactive airway exacerbation Plan: 1. Encephalopathy. Resolved -most likely secondary to the toxic effects of medications including Ambien as well as toxic effects of infection -continue to hold ambien, lowered dose of tramadol and gabapentin in short-term 2. RSV. Positive RVP, stimulating reactive airways -supportive care 3. Acute reactive airway exacerbation/Acute Bronchitis. Evidenced by bilat late exp wheezes and cough triggered on expiration + hypoxia -2/2 RSV -pred 40mg daily (D#2/5), add scheduled duonebs -cont guaif/dextro PRN, sarahi PRN, tylenol for chest pain from cough -Cipro per below 4. Possible urinary tract infection. Evidenced by dysuria and mildly positive urinalysis, history of urinary tract infection back in August of 2015 -day 3/5 Cipro 5. Acute kidney injury. Most likely hypovolemic, given IV fluids, resolved 6. Atelectasis. Acute, present on chest CT, provided incentive spirometer, most likely secondary to somnolence and inactivity 7. Unintentional overdose. Patient on combination of tramadol and Ambien, dose was higher than her norm, both likely contributed to presentation 8. History of venous thromboembolism. Review of outside records including [address] Mayen, reporting patient had a pulmonary embolism secondary to deep venous thrombosis resulting in respiratory failure, requiring Eliquis. -ultrasound from July of 2016 demonstrates no evidence of persistent DVT, currently off of systemic anticoagulation given high risk of falls 9. Insomnia: will cont to hold Ambien. Will provide for low dose Ativan PRN insomnia. Diet. Regular Prophylaxis. High risk patient, lovenox 40 Code. Full per patient, her daughter is her MPOA Disposition. Still very symptomatic. + cough, SOB, weak. She is not safe to return home yet. She will be managed overnight. Anticipate d/c possibly tomorrow. Subjective: Still with cough, SOB, supplemental O2, and weakness. Afebrile Objective: Vital Signs Temp Pulse Resp BP Pulse Ox 36.7 C 78 18 96/50 L 93 09/05/16 07:34 09/05/16 07:34 09/05/16 07:34 09/05/16 07:34 09/05/16 07:34 Laboratory Results 09/05/16 04:41 09/04/16 09/05/16 09/06/16 05:59 05:59 05:59 Intake Total 1500 Output Total 700 Balance 800 - Physical Exam Constitutional: no apparent distress, appears nourished Eyes: PERRL, EOMI Ears, Nose, Mouth, Throat: moist mucous membranes, hard of hearing, No hearing normal Cardiovascular: regular rate and rhythym, No JVD Respiratory: reduced air movement, No no respiratory distress, No no rales or rhonchi, No clear to auscultation Gastrointestinal: normoactive bowel sounds, soft, non-tender abdomen, no palpable masses Genitourinary: no bladder fullness, no renal bruits Skin: warm, normal color Musculoskeletal: generalized weakness Neurologic: AAOx3, No facial droop Psychiatric: interacting appropriately, not anxious, not encephalopathic Lymph, Heme, Immunologic: no cervical LAD, No lymphadenopathy ICD10 Worksheet Patient Problems: Problems Problem Status Onset Accidental medication overdose Acute Fall Acute Head injury Acute Confusion Acute Fever Acute Hypoxemia Acute Pneumonia Acute Pulmonary embolism Acute Troponin level elevated Acute UTI (urinary tract infection) Acute Weakness Acute
[2016-09-05] MEDS: MULTIVITAMINS 1 EACH TAB PO SCH (09:53)
[2016-09-05] MEDS: predniSONE 20 MG TAB PO SCH (09:53)
[2016-09-05] MEDS: guaiFENesin 600 MG TAB.ER PO SCH ×2 (09:53→20:33)
[2016-09-05] MEDS: ENOXAPARIN 40 MG/0.4 ML SYR SC SCH (09:54)
[2016-09-05] MEDS: ASPIRIN 81 MG CHEWABLE TAB PO SCH (09:54)
[2016-09-05] MEDS: BENZONATATE 100 MG CAP PO PRN ×3 (09:54→20:32)
[2016-09-05] MEDS: ELUXADOLINE 100 MG PO SCH ×2 (09:54→18:10)
[2016-09-05] MEDS: CIPROFLOXACIN 200 MG/DEXTROSE 100 ML IV SCH ×2 (09:55→20:33)
[2016-09-05] MEDS: FLUTICASONE HFA 110 MCG MDI IH SCH ×3 (10:48→20:33)
[2016-09-05] MEDS: GABAPENTIN 100 MG CAP PO SCH (20:33)
[2016-09-05] MEDS: ATORVASTATIN CALCIUM 20 MG TAB PO SCH (20:33)
[2016-09-05] MEDS: BIMATOPROST 0.01% 2.5 ML OPHT.BTL EACHEYE SCH (20:34)
[2016-09-05] MEDS: LORazepam 0.5 MG TAB PO PRN (23:59)
[2016-09-06] MEDS: IPRATROPIUM/ALBUTEROL 3 ML DEYVIAL IH SCH ×4 (04:25→21:18)
[2016-09-06] MEDS: LEVOTHYROXINE 100 MCG TAB PO SCH (05:58)
[2016-09-06] MEDS: GUAIFENESIN/DM 10 ML UDCUP PO PRN ×5 (05:58→22:33)
[2016-09-06] MEDS: BENZONATATE 100 MG CAP PO PRN ×3 (05:59→23:49)
[2016-09-06 06:36] LABS: % IMMATURE GRANULYOCYTES 0.4 % (0.0-1.1); ABSOLUTE IMMATURE GRANULOCYTES 0.03 10^3/uL (0.00-0.10); ADD DIFF? NO; ADD MORPH? NO; ADD SCAN? NO; ATYPICAL LYMPHOCYTE FLAG 20 (0-99); FRAGMENT RBC FLAG 0 (0-99); HEMATOCRIT 35.9 % (38.0-47.0); LEFT SHIFT FLG 0 (0-99); LIPEMIA HEMOLYSIS FLAG 80 (0-99); MEAN CELL HEMOGLOBIN 30.2 pg (27.9-34.1); MEAN CELL HEMOGLOBIN CONCENTR. 33.4 g/dL (32.4-36.7); MEAN CELL VOLUME 90.4 fL (81.5-99.8); MEAN PLATELET VOLUME 9.7 fL (8.7-11.7); PLATELET CLUMPS FLAG 0 (0-99); PLATELET COUNT 234 10^3/uL (150-400); RED BLOOD CELL COUNT 3.97 10^6/uL (4.18-5.33); RED CELL DISTRIBUTION WIDTH 13.7 % (11.5-15.2)
[2016-09-06 07:04] LABS: ANION GAP 10 mEq/L (8-16); CALCIUM 9.2 mg/dL (8.5-10.4); CARBON DIOXIDE 19 mEq/l (22-31); CHLORIDE 115 mEq/L (97-110); CREATININE 0.9 mg/dL (0.6-1.0); GLOMERULAR FILTRATION RATE > 60; GLUCOSE 94 mg/dL (70-100); MAGNESIUM 2.3 mg/dL (1.6-2.3); POTASSIUM 3.7 mEq/L (3.5-5.2); SODIUM 144 mEq/L (134-144)
[2016-09-06] MEDS: FLUTICASONE HFA 110 MCG MDI IH SCH ×2 (09:11→21:21)
[2016-09-06] MEDS: ELUXADOLINE 100 MG PO SCH ×3 (09:46→18:39)
[2016-09-06] MEDS: ASPIRIN 81 MG CHEWABLE TAB PO SCH (09:49)
[2016-09-06] MEDS: MULTIVITAMINS 1 EACH TAB PO SCH (09:49)
[2016-09-06] MEDS: LORazepam 0.5 MG TAB PO PRN ×2 (09:49→23:49)
[2016-09-06] MEDS: CIPROFLOXACIN 200 MG/DEXTROSE 100 ML IV SCH ×2 (09:50→21:28)
[2016-09-06] MEDS: predniSONE 20 MG TAB PO SCH (09:50)
[2016-09-06] MEDS: guaiFENesin 600 MG TAB.ER PO SCH ×2 (09:50→21:28)
--- NOTE | 2016-09-06 12:19 | HOSPPROG ---
Hospitalist Progress Note Assessment/Plan: 80-year-old female presents with acute encephalopathy in the setting of RSV, urinary tract infection, and, acute reactive airway exacerbation. Today she continue to be very symptomatic from a pulm perspective including lots of coughing and SOB. Plan: 1. Encephalopathy. Resolved -most likely secondary to the toxic effects of medications including Ambien as well as toxic effects of infection -continue to hold ambien, lowered dose of tramadol and gabapentin in short-term 2. RSV. Positive RVP, stimulating reactive airways -supportive care 3. Acute reactive airway exacerbation/Acute Bronchitis. Evidenced by bilat late exp wheezes and cough triggered on expiration + hypoxia -2/2 RSV -pred 40mg daily (D#3/5), add scheduled duonebs -cont guaif/dextro PRN, sarahi PRN, tylenol for chest pain from cough -Cipro per below -Still very symptomatic, will keep in the hospital. Her exam is not very impressive and is mostly c/w clear lung bennett 4. Possible urinary tract infection. Evidenced by dysuria and mildly positive urinalysis, history of urinary tract infection back in August of 2015 -day 4/5 Cipro 5. Acute kidney injury. Most likely hypovolemic, given IV fluids, resolved 6. Atelectasis. Acute, present on chest CT, provided incentive spirometer, most likely secondary to somnolence and inactivity 7. Unintentional overdose. Patient on combination of tramadol and Ambien, dose was higher than her norm, both likely contributed to presentation 8. History of venous thromboembolism. Review of outside records including [address] Mayen, reporting patient had a pulmonary embolism secondary to deep venous thrombosis resulting in respiratory failure, requiring Eliquis. -ultrasound from July of 2016 demonstrates no evidence of persistent DVT, currently off of systemic anticoagulation given high risk of falls 9. Insomnia: will cont to hold Ambien. Will provide for low dose Ativan PRN insomnia. 10. Gen Weakness: PT/OT Diet. Regular Prophylaxis. High risk patient, lovenox 40 Code. Full per patient, her daughter is her MPOA Disposition. Still very symptomatic. + cough, SOB, weak. She is not safe to return home yet. She will be managed overnight. Anticipate d/c possibly tomorrow if she has clinical improvement Subjective: cough is worse today than yesterday. Afebrile. No CP, no Leg swelling. Objective: Vital Signs Temp Pulse Resp BP Pulse Ox 36.8 C 94 18 128/72 H 90 L 09/06/16 08:33 09/06/16 09:17 09/06/16 09:17 09/06/16 08:33 09/06/16 09:17 Laboratory Results 09/06/16 06:06 09/06/16 06:06 09/05/16 09/06/16 09/07/16 05:59 05:59 05:59 Intake Total 1500 1150 Output Total 700 1400 Balance 800 -250 - Physical Exam Constitutional: no apparent distress, appears nourished Eyes: PERRL, EOMI Ears, Nose, Mouth, Throat: moist mucous membranes, No hearing normal, No dry mucous membranes Cardiovascular: regular rate and rhythym, no murmur, rub, or gallop, edema Respiratory: reduced air movement, No clear to auscultation Gastrointestinal: normoactive bowel sounds, soft, non-tender abdomen Genitourinary: no bladder fullness Skin: warm, normal color Musculoskeletal: generalized weakness Neurologic: AAOx3 Psychiatric: interacting appropriately, not anxious, not encephalopathic ICD10 Worksheet Patient Problems: Problems Problem Status Onset Accidental medication overdose Acute Fall Acute Head injury Acute Confusion Acute Fever Acute Hypoxemia Acute Pneumonia Acute Pulmonary embolism Acute Troponin level elevated Acute UTI (urinary tract infection) Acute Weakness Acute
[2016-09-06] MEDS: ENOXAPARIN 40 MG/0.4 ML SYR SC SCH (16:28)
[2016-09-06] MEDS: ACETAMINOPHEN 325 MG TAB PO PRN ×2 (18:44→23:49)
[2016-09-06] MEDS: ATORVASTATIN CALCIUM 20 MG TAB PO SCH (21:28)
[2016-09-06] MEDS: GABAPENTIN 100 MG CAP PO SCH (21:28)
[2016-09-06] MEDS: BIMATOPROST 0.01% 2.5 ML OPHT.BTL EACHEYE SCH (22:33)
[2016-09-07] MEDS: LEVOTHYROXINE 100 MCG TAB PO SCH (05:19)
[2016-09-07] MEDS: IPRATROPIUM/ALBUTEROL 3 ML DEYVIAL IH SCH ×4 (05:21→21:33)
[2016-09-07] MEDS: guaiFENesin 600 MG TAB.ER PO SCH ×2 (08:43→21:30)
[2016-09-07] MEDS: ASPIRIN 81 MG CHEWABLE TAB PO SCH (08:44)
[2016-09-07] MEDS: predniSONE 20 MG TAB PO SCH (08:44)
[2016-09-07] MEDS: MULTIVITAMINS 1 EACH TAB PO SCH (08:44)
[2016-09-07] MEDS: ENOXAPARIN 40 MG/0.4 ML SYR SC SCH (08:44)
[2016-09-07] MEDS: ELUXADOLINE 100 MG PO SCH ×2 (08:47→19:14)
[2016-09-07] MEDS: GUAIFENESIN/DM 10 ML UDCUP PO PRN (08:54)
[2016-09-07] MEDS: CIPROFLOXACIN 200 MG/DEXTROSE 100 ML IV SCH (08:54)
[2016-09-07] MEDS: FLUTICASONE HFA 110 MCG MDI IH SCH ×2 (08:54→21:33)
[2016-09-07] MEDS ORDERED: oxyCODONE IR 5 MG TAB PO PRN (10:51)
--- NOTE | 2016-09-07 10:57 | HOSPPROG ---
Hospitalist Progress Note Assessment/Plan: 80-year-old female presents with acute encephalopathy in the setting of RSV, urinary tract infection, and, acute reactive airway exacerbation. Today she continue to be very symptomatic from a pulm perspective including lots of coughing and SOB. 1. Encephalopathy. Resolved most likely secondary to the toxic effects of medications including Ambien as well as toxic effects of infection continue to hold ambien, lowered dose of tramadol and gabapentin in short- term on very low dose ativan for sleep not ideal but tolerating not confused today 2. RSV. Positive RVP, stimulating reactive airways supportive care 3. Acute reactive airway exacerbation/Acute Bronchitis. Evidenced by bilat late exp wheezes and cough triggered on expiration + hypoxia 2/2 RSV pred 40mg daily (D#4/5), add scheduled duonebs chnage cough meds to scheduled tessalon perles (she says they are helping) plus scheduled robitissin ac and prn low dose oxycodone 4. Possible urinary tract infection. Evidenced by dysuria and mildly positive urinalysis, history of urinary tract infection back in August of 2015 day 5/5 Cipro dc today 5. Acute kidney injury. Most likely hypovolemic, given IV fluids, resolved 6. Atelectasis. Acute, present on chest CT, provided incentive spirometer, most likely secondary to somnolence and inactivity 7. Unintentional overdose. Patient on combination of tramadol and Ambien, dose was higher than her norm, both likely contributed to presentation 8. History of venous thromboembolism. ultrasound from July of 2016 demonstrates no evidence of persistent DVT, currently off of systemic anticoagulation given falls LMWH proph 9. Insomnia: will cont to hold Ambien. Will provide for low dose Ativan PRN insomnia. 10. Gen Weakness: PT/OT Diet. Regular Prophylaxis. High risk patient, lovenox 40 Code. Full per patient, her daughter is her MPOA Disposition. Still very symptomatic. + cough, SOB, weak. She is not safe to return home yet. She will be managed overnight. Anticipate d/c possibly tomorrow if she has clinical improvement Subjective: c/o severe cough- "too severe to go home". CT images w no inflitrate (interp by me) Objective: Vital Signs Temp Pulse Resp BP Pulse Ox 36.4 C 73 18 130/71 H 97 09/07/16 08:15 09/07/16 08:15 09/07/16 08:15 09/07/16 08:15 09/07/16 08:15 Laboratory Results 09/06/16 06:06 09/06/16 06:06 09/06/16 09/07/16 09/08/16 05:59 05:59 05:59 Intake Total 1150 1700 500 Output Total 1400 1800 200 Balance -250 -100 300 - Physical Exam Constitutional: no apparent distress, appears nourished, other Eyes: PERRL, anicteric sclera Ears, Nose, Mouth, Throat: moist mucous membranes, hearing normal Cardiovascular: regular rate and rhythym, no murmur, rub, or gallop Respiratory: no respiratory distress, no rales or rhonchi, other (paroxysms of cough), No expiratory wheeze Gastrointestinal: normoactive bowel sounds, soft, non-tender abdomen Genitourinary: No crawford in urethra Skin: warm, normal color Musculoskeletal: full muscle strength, no muscle tenderness Neurologic: AAOx3 ICD10 Worksheet Patient Problems: Problems Problem Status Onset Accidental medication overdose Acute Fall Acute Head injury Acute Confusion Acute Fever Acute Hypoxemia Acute Pneumonia Acute Pulmonary embolism Acute Troponin level elevated Acute UTI (urinary tract infection) Acute Weakness Acute
[2016-09-07] MEDS: BENZONATATE 100 MG CAP PO SCH ×3 (12:13→21:26)
[2016-09-07] MEDS: guaiFENesin/CODEINE PHOS 10 ML UDCUP PO SCH ×3 (12:14→23:55)
[2016-09-07] MEDS: ACETAMINOPHEN 325 MG TAB PO PRN ×2 (12:17→21:25)
[2016-09-07] MEDS ORDERED: BENZONATATE 100 MG CAP PO SCH (16:00)
[2016-09-07] MEDS: LORazepam 0.5 MG TAB PO PRN (21:26)
[2016-09-07] MEDS: ATORVASTATIN CALCIUM 20 MG TAB PO SCH (21:26)
[2016-09-07] MEDS: GABAPENTIN 100 MG CAP PO SCH (21:26)
[2016-09-07] MEDS: BIMATOPROST 0.01% 2.5 ML OPHT.BTL EACHEYE SCH (21:30)
[2016-09-08] MEDS: BENZONATATE 100 MG CAP PO SCH ×4 (00:01→20:29)
[2016-09-08] MEDS: LEVOTHYROXINE 100 MCG TAB PO SCH (05:53)
[2016-09-08] MEDS: guaiFENesin/CODEINE PHOS 10 ML UDCUP PO SCH ×5 (05:53→23:14)
[2016-09-08] MEDS: IPRATROPIUM/ALBUTEROL 3 ML DEYVIAL IH SCH ×4 (06:17→23:30)
[2016-09-08] MEDS: ASPIRIN 81 MG CHEWABLE TAB PO SCH (09:26)
[2016-09-08] MEDS: guaiFENesin 600 MG TAB.ER PO SCH ×2 (09:26→20:31)
[2016-09-08] MEDS: predniSONE 20 MG TAB PO SCH (09:27)
[2016-09-08] MEDS: ELUXADOLINE 100 MG PO SCH ×2 (09:27→17:18)
[2016-09-08] MEDS: MULTIVITAMINS 1 EACH TAB PO SCH (09:27)
[2016-09-08] MEDS: FLUTICASONE HFA 110 MCG MDI IH SCH ×3 (11:04→23:31)
[2016-09-08] MEDS: ENOXAPARIN 40 MG/0.4 ML SYR SC SCH (12:32)
[2016-09-08] MEDS: ACETAMINOPHEN 325 MG TAB PO PRN ×2 (15:26→23:13)
[2016-09-08] MEDS ORDERED: POLYETHYLENE GLYCOL 3350 17 GM PKT PO ONE (16:42)
--- NOTE | 2016-09-08 16:42 | HOSPPROG ---
Hospitalist Progress Note Assessment/Plan: 80-year-old female presents with acute encephalopathy in the setting of RSV, urinary tract infection, and, acute reactive airway exacerbation. Today she continue to be very symptomatic from a pulm perspective including lots of coughing and SOB. 1. Encephalopathy. Resolved most likely secondary to the toxic effects of medications including Ambien as well as toxic effects of infection continue to hold ambien, lowered dose of tramadol and gabapentin in short- term on very low dose ativan for sleep not ideal but tolerating not confused today 2. RSV. Positive RVP, stimulating reactive airways supportive care 3. Acute reactive airway exacerbation/Acute Bronchitis. Evidenced by bilat late exp wheezes and cough triggered on expiration + hypoxia 2/2 RSV pred 40mg daily (D#5/), add scheduled duonebs change cough meds to scheduled tessalon perles (she says they are helping) plus scheduled robitissin ac and prn low dose oxycodone improved on this regimen 4. Possible urinary tract infection. Evidenced by dysuria and mildly positive urinalysis, history of urinary tract infection back in August of 2015 completed 5 days cipro 5. Acute kidney injury. Most likely hypovolemic, given IV fluids, resolved 6. Atelectasis. Acute, present on chest CT, provided incentive spirometer, most likely secondary to somnolence and inactivity 7. Unintentional overdose. Patient on combination of tramadol and Ambien, dose was higher than her norm, both likely contributed to presentation 8. History of venous thromboembolism. ultrasound from July of 2016 demonstrates no evidence of persistent DVT, currently off of systemic anticoagulation given falls LMWH proph 9. Insomnia: will cont to hold Ambien. Will provide for low dose Ativan PRN insomnia. 10. Gen Weakness: PT/OT Diet. Regular Prophylaxis. High risk patient, lovenox 40 Code. Full per patient, her daughter is her MPOA Disposition. Still very symptomatic. + cough, SOB, weak. She is not safe to return home yet. She will be managed overnight. Anticipate d/c possibly tomorrow if she has clinical improvement Subjective: cough better but still present, persistent. constipated Objective: Vital Signs Temp Pulse Resp BP Pulse Ox 36.7 C 76 14 133/90 H 91 L 09/08/16 09:10 09/08/16 11:05 09/08/16 11:05 09/08/16 09:10 09/08/16 11:05 Laboratory Results 09/06/16 06:06 09/06/16 06:06 09/07/16 09/08/16 09/09/16 05:59 05:59 05:59 Intake Total 1700 1550 Output Total 1800 1500 Balance -100 50 - Physical Exam Constitutional: no apparent distress, appears nourished Eyes: PERRL, anicteric sclera Ears, Nose, Mouth, Throat: moist mucous membranes, hearing normal Cardiovascular: regular rate and rhythym, no murmur, rub, or gallop, No systolic murmur Respiratory: no respiratory distress, no rales or rhonchi Gastrointestinal: normoactive bowel sounds, soft, non-tender abdomen Genitourinary: no bladder fullness, No crawford in urethra Skin: warm, normal color Musculoskeletal: full muscle strength, no muscle tenderness Neurologic: AAOx3 ICD10 Worksheet Patient Problems: Problems Problem Status Onset Accidental medication overdose Acute Fall Acute Head injury Acute Confusion Acute Fever Acute Hypoxemia Acute Pneumonia Acute Pulmonary embolism Acute Troponin level elevated Acute UTI (urinary tract infection) Acute Weakness Acute
[2016-09-08] MEDS: ATORVASTATIN CALCIUM 20 MG TAB PO SCH (20:30)
[2016-09-08] MEDS: GABAPENTIN 100 MG CAP PO SCH (20:31)
[2016-09-08] MEDS: LORazepam 0.5 MG TAB PO PRN (20:32)
[2016-09-08] MEDS: BIMATOPROST 0.01% 2.5 ML OPHT.BTL EACHEYE SCH (20:33)
[2016-09-09] MEDS: LEVOTHYROXINE 100 MCG TAB PO SCH (05:32)
[2016-09-09] MEDS: guaiFENesin/CODEINE PHOS 10 ML UDCUP PO SCH ×3 (05:33→15:40)
[2016-09-09 05:51] VITALS: TEMP 97.9
[2016-09-09] MEDS: IPRATROPIUM/ALBUTEROL 3 ML DEYVIAL IH SCH ×2 (06:42→11:33)
[2016-09-09 08:02] VITALS: BP 133/78; RESP 16
[2016-09-09] MEDS: MULTIVITAMINS 1 EACH TAB PO SCH (09:00)
[2016-09-09] MEDS: ASPIRIN 81 MG CHEWABLE TAB PO SCH (09:00)
[2016-09-09] MEDS: guaiFENesin 600 MG TAB.ER PO SCH (09:00)
[2016-09-09] MEDS: BENZONATATE 100 MG CAP PO SCH ×2 (09:00→15:41)
[2016-09-09] MEDS: ELUXADOLINE 100 MG PO SCH (09:09)
[2016-09-09] MEDS: FLUTICASONE HFA 110 MCG MDI IH SCH (11:13)
[2016-09-09 11:43] VITALS: PULSE 75; O2SAT 96
[2016-09-09] MEDS: ENOXAPARIN 40 MG/0.4 ML SYR SC SCH (12:28)
--- NOTE | 2016-09-09 13:07 | HOSPPROG ---
Hospitalist Progress Note Assessment/Plan: 80-year-old female presents with acute encephalopathy in the setting of RSV, urinary tract infection, and, acute reactive airway exacerbation. Today she continue to be very symptomatic from a pulm perspective including lots of coughing and SOB. 1. Encephalopathy. Resolved most likely secondary to the toxic effects of medications including Ambien as well as toxic effects of infection continue to hold ambien, lowered dose of tramadol and gabapentin in short- term on very low dose ativan for sleep not ideal but tolerating not confused today 2. RSV. Positive RVP, stimulating reactive airways supportive care 3. Acute reactive airway exacerbation/Acute Bronchitis. Evidenced by bilat late exp wheezes and cough triggered on expiration + hypoxia 2/2 RSV pred 40mg daily (D#5/), add scheduled duonebs change cough meds to scheduled tessalon perles (she says they are helping) plus scheduled robitissin ac and prn low dose oxycodone improved on this regimen 4. Possible urinary tract infection. Evidenced by dysuria and mildly positive urinalysis, history of urinary tract infection back in August of 2015 completed 5 days cipro 5. Acute kidney injury. Most likely hypovolemic, given IV fluids, resolved 6. Atelectasis. Acute, present on chest CT, provided incentive spirometer, most likely secondary to somnolence and inactivity 7. Unintentional overdose. Patient on combination of tramadol and Ambien, dose was higher than her norm, both likely contributed to presentation 8. History of venous thromboembolism. ultrasound from July of 2016 demonstrates no evidence of persistent DVT, currently off of systemic anticoagulation given falls LMWH proph 9. Insomnia: will cont to hold Ambien. Will provide for low dose Ativan PRN insomnia. 10. Gen Weakness: PT/OT Diet. Regular Prophylaxis. High risk patient, lovenox 40 Code. Full per patient, her daughter is her MPOA Disposition. home today > 30 minutes on dc Subjective: cough improved. on RA Objective: Vital Signs Temp Pulse Resp BP Pulse Ox 36.6 C 75 16 133/78 H 96 09/09/16 08:01 09/09/16 11:35 09/09/16 11:35 09/09/16 08:01 09/09/16 11:35 Laboratory Results 09/06/16 06:06 09/06/16 06:06 09/08/16 09/09/1609/10/17 05:59 05:59 05:59 Intake Total 1550 300 Output Total 1500 500 Balance 50 -200 - Physical Exam Constitutional: no apparent distress, appears nourished Eyes: PERRL, anicteric sclera Ears, Nose, Mouth, Throat: moist mucous membranes, hearing normal Cardiovascular: regular rate and rhythym, no murmur, rub, or gallop Respiratory: no respiratory distress, no rales or rhonchi Gastrointestinal: normoactive bowel sounds, soft, non-tender abdomen Genitourinary: No crawford in urethra Skin: warm, normal color Musculoskeletal: full muscle strength, no muscle tenderness Neurologic: AAOx3, sensation intact bilaterally Psychiatric: interacting appropriately Lymph, Heme, Immunologic: no cervical LAD ICD10 Worksheet Patient Problems: Problems Problem Status Onset Accidental medication overdose Acute Fall Acute Head injury Acute Confusion Acute Fever Acute Hypoxemia Acute Pneumonia Acute Pulmonary embolism Acute Troponin level elevated Acute UTI (urinary tract infection) Acute Weakness Acute
--- NOTE | 2016-09-09 13:58 | GDS ---
[f rep st] DISCHARGE SUMMARY DISCHARGE DIAGNOSES: 1. Encephalopathy, now resolved. 2. Possible urinary tract infection status post 5 days of ciprofloxacin. 3. Respiratory syncytial virus bronchitis with significant coughing. 4. Chronic diarrhea. 5. Acute kidney injury, now resolved. 6. Atelectasis, now resolved. 7. Unintentional overdose of tramadol and Ambien. HOSPITAL COURSE: Please see admission History and Physical by Dr. Michael Petit. The patient present ed with encephalopathy and RSV. She had clear chest x-ray. She received 5 days of Cipro for possib le UTI, although urine culture grew 5 colonies. This is more consistent with contamination. She pérez d a modest amount of pyuria which was consistent with a postmenopausal vagina. She received 5 days of steroids. She had a repeat chest x-ray performed on the that showed no infiltrate. A predominant complaint for the last 3 days of this hospitalization was significant cou gh. She received aggressive cough suppression with scheduled Robitussin AC as well as p.r.n. oxycod one. This improved her symptoms greatly, and she was discharged home with Robitussin AC, a limited prescription for Ativan for sleep, and albuterol MDI. /[id number]/MODL
--- NOTE | 2016-09-09 14:31 | PDIAF ---
- Diagnosis Diagnosis: bronchitis Code Status: Full Code - Medication Management Discharge Medications: Medications to Continue on Transfer Fluticasone Propionate [Flovent Diskus] 100 mcg IH BID 08/23/15 [Last Taken 12/01 21:00] Gabapentin [Neurontin 100 MG (*)] 500 mg PO HS 08/23/15 [Last Taken 08/22/15 18: 00] traMADol [Ultram 50 mg (*)] 50 mg PO Q4 PRN 08/23/15 [Last Taken 12/27/15] Aspirin [Aspirin 81mg (*)] 81 mg PO DAILY 09/03/16 [Last Taken Unknown] Bimatoprost 0.01% [Lumigan 0.01% (*)] 1 drops EACHEYE HS 09/03/16 [Last Taken Unknown] Budesonide [Uceris] 9 mg PO DAILY 09/03/16 [Last Taken Unknown] Eluxadoline [Viberzi] 100 mg PO BIDMEAL 09/03/16 [Last Taken Unknown] Herbals/Supplements -Info Only 1 ea PO DAILY 09/03/16 [Last Taken Unknown] Levothyroxine [Synthroid 100 mcg (*)] 100 mcg PO DAILY06 09/03/16 [Last Taken Unknown] Multivitamins [Multivitamin (*)] 1 each PO DAILY 09/03/16 [Last Taken Unknown] Simvastatin 40 mg PO HS 09/03/16 [Last Taken Unknown] Zolpidem Tartrate [Ambien 5MG (*)] 5 - 10 mg PO HS PRN 09/03/16 [Last Taken Unknown] Albuterol [Proventil Inhaler HFA (*)] 1 - 2 puffs IH Q4H PRN #1 mdi 09/09/16 [ Last Taken Unknown] Fluticasone Hfa 110 Mcg [Flovent 110 MCG Hfa MDI (*)] 2 puffs IH BID #0 mdi [Last Taken Unknown] LORazepam [Ativan (*)] 0.5 mg PO HS PRN #14 tab 09/09/16 [Last Taken Unknown] guaiFENesin [Mucinex 600 MG (*)] 1,200 mg PO BID #30 tab.er 09/09/16 [Last Taken Unknown] Discharge Medications: Refer to the Discharge Home Medication list for PRN reason. - Orders Services needed: Home Care, Registered Nurse, Physical Therapy, Occupational Therapy Home Care Face to Face: I certify that this patient was under my care and that I had the required [id number] encounter meeting the encounter requirements on the discharge day. My findings support the fact that the patient is homebound as defined in CMS Chapter 7 Medicare Benefits Manual 30.1.1, The condition of the patient is such that there exists a normal inability to leave home and consequently, leaving home would require a considerable and taxing effort. - Follow Up Care Current Providers and Referrals: Yessi Sampson MD [Primary Care Provider] - As per Instructions
== END 2016-09-09 16:08 | disposition home health service (06) | DRG 917 ==
LOC: EDUNIT# → F1N 12:00 → OBSVTOIN 09-04 10:53
PROVIDERS: ADMIT Internal Medicine; ATTEND Internal Medicine
DX: T42.6X1A Poisoning by other antiepileptic and sedative-hypnotic drugs, accidental (unintentional), initial encounter (principal); T40.4X1A Poisoning by other synthetic narcotics, accidental (unintentional), initial encounter; G92 Toxic encephalopathy; J20.5 Acute bronchitis due to respiratory syncytial virus; J45.901 Unspecified asthma with (acute) exacerbation; J98.11 Atelectasis; N39.0 Urinary tract infection, site not specified; S09.90XA Unspecified injury of head, initial encounter; R19.7 Diarrhea, unspecified; N17.9 Acute kidney failure, unspecified; E03.9 Hypothyroidism, unspecified; E78.5 Hyperlipidemia, unspecified; W19.XXXA Unspecified fall, initial encounter; Y92.012 Bathroom of single-family (private) house as the place of occurrence of the external cause
CPT/HCPCS: 97116-GP; 97161-GP; 97165-GO; 97530-GO; 97530-GP; 97535-GO; G0378; G8978-GP-CJ; G8979-GP-CI; G8980-GP-CI; G8987-GO-CI; G8988-GO-CI; J1650

== ENCOUNTER 2017-08-12 11:01 | Emergency (ER) | payer OTHER ==
[2017-08-12 11:09] VITALS: TEMP 99
--- NOTE | 2017-08-12 11:29 | CPEKG ---
Heart Rate: 85 RR Interval: 706 P-R Interval: 164 QRSD Interval: 90 QT Interval: 352 QTC Interval: 419 P [place]: 41 QRS [place]: 2 T Wave [place]: 49 EKG Severity - NORMAL ECG - EKG Impression: SINUS RHYTHM Electronically Signed By: Hans Toscano 12-Aug-2017 16:08:07
[2017-08-12 13:37] LABS: PLATELET COUNT 234 10^3/uL (150-400)
[2017-08-12] MEDS ORDERED: IOPAMIDOL (ISOVUE 370) 100 ML BTL IV ONE (14:17)
[2017-08-12] MEDS ORDERED: HYDROCOD/APAP 5/325 PREPACK#6 BTL TAKEHOME ONE (15:48)
--- NOTE | 2017-08-12 15:48 | EDPHY ---
H & P Stated Complaint: c/o R sided chest,upper abd, lat rib pain,worse with movement/ inspiration Time Seen by Provider: 08/12/17 12:50 HPI/ROS: Chief Complaint: Right chest pain HPI: 81-year-old woman has been having right chest pain radiating to her back. She has a history of PE in the past in the left lung. This feels similar. She says it hurts to take a deep breath. No pain when she is at rest. No central chest pain. No fevers or chills. No cough. No nausea or vomiting. No leg pain or swelling. ROS: 10 point Review of Systems is negative except as noted in the HPI. PMH: PE Social History: No smoking, no alcohol, no recreational drug use Family History: non-contributory Physical Exam: Gen: Awake, Alert, No Distress HEENT: Nose: no rhinorrhea Eyes: PERRLA, EOMI Mouth: Moist mucosa Neck: Supple, no JVD Chest: nontender, lungs clear to auscultation Heart: S1, S2 normal, no murmur Abd: Soft, non-tender, no guarding Back: no CVA tenderness, no midline tenderness Ext: no edema, non-tender Skin: no rash Neuro: CN II-XII intact, Sensation grossly intact, Strength 5/5 in bilateral upper and lower extremities - Personal History Current Tetanus Diphtheria and Acellular Pertussis (TDAP): Yes - Medical/Surgical History Hx Asthma: No Hx Chronic Respiratory Disease: No Hx Diabetes: No Hx Cardiac Disease: No Hx Renal Disease: No Hx Cirrhosis: No Hx Alcoholism: No Hx HIV/AIDS: No Hx Splenectomy or Spleen Trauma: No Other PMH: DEGENERATIVE JOINTS/PAIN, arthritis, chronic diarrhea, hypothyroid, L knee replacement, neck/spine surgery, glaucoma, hands reconstructed, appendectomy, glaucoma, bronchial problems, depression, hyperlipidemia/PE, chronic pain - Social History Smoking Status: Never smoked Constitutional: Initial Vital Signs Temperature (C) 37.2 C 08/12/17 11:04 Heart Rate 95 08/12/17 11:04 Respiratory Rate 18 08/12/17 11:04 Blood Pressure 103/74 08/12/17 11:04 O2 Sat (%) 91 L 08/12/17 11:04 O2 Delivery Mode Room Air O2 (L/minute) 2 Allergies/Adverse Reactions: celecoxib [From Celebrex] Allergy (Severe, Verified 08/12/17 11:04) Hives Penicillins Allergy (Unknown, Verified 08/12/17 11:04) Home Medications: Medication Instructions Recorded Fluticasone Propionate [Flovent 100 mcg IH BID 08/23/15 Diskus] Gabapentin [Neurontin 100 MG (*)] 500 mg PO HS 08/23/15 traMADol [Ultram 50 mg (*)] 50 mg PO Q4 PRN 08/23/15 Aspirin [Aspirin 81mg (*)] 81 mg PO DAILY 09/03/16 Bimatoprost 0.01% [Lumigan 0.01% 1 drops EACHEYE HS 09/03/16 (*)] Budesonide [Uceris] 9 mg PO DAILY 09/03/16 Eluxadoline [Viberzi] 100 mg PO BIDMEAL 09/03/16 Herbals/Supplements -Info Only 1 ea PO DAILY 09/03/16 Levothyroxine [Synthroid 100 mcg 100 mcg PO DAILY06 09/03/16 (*)] Multivitamins [Multivitamin (*)] 1 each PO DAILY 09/03/16 Simvastatin 40 mg PO HS 09/03/16 Zolpidem Tartrate [Ambien 5MG (*)] 5 - 10 mg PO HS PRN 09/03/16 Albuterol [Proventil Inhaler HFA 1 - 2 puffs IH Q4H PRN #1 mdi 09/09/16 (*)] Fluticasone Hfa 110 Mcg [Flovent 2 puffs IH BID #0 mdi 09/09/16 110 MCG Hfa MDI (*)] LORazepam [Ativan (*)] 0.5 mg PO HS PRN #14 tab 09/09/16 guaiFENesin [Mucinex 600 MG (*)] 1,200 mg PO BID #30 tab.er 09/09/16 Hydrocodone/Acetaminophen 1 - 2 each PO Q4-6PRN PRN #10 08/12/17 [Hydrocodon-Acetaminophen 5-325] tablet Medical Decision Making - Diagnostics EKG Interpretation: ECG time 11:27 a.m., sinus rhythm with a rate of 85, normal axis, normal intervals, no acute ST or T-wave changes. Impression: Normal ECG. Imaging Results: CT scan of the chest is negative for PE. There is some right-sided atelectasis with no pneumonia. Mild bilateral effusions. Interpreted by Dr. Botello. Imaging: Discussed imaging studies w/ fisher scallop Radiologist ED Course/Re-evaluation: CT scan of the chest is negative for PE. No focal infiltrates. Some mild CHF. ECG is normal. Remainder of her evaluation is unremarkable. Will discharge with analgesics, incentive spirometry. Follow up with primary care physician, return for any worsening. No evidence of acute coronary syndrome, infectious process at this time. - Data Points Laboratory Results: Laboratory Results 08/12/17 11:30 08/12/17 11:30 08/12/17 08/12/17 11:30 11:30 WBC 9.11 10^3/uL 10^3/uL (3.80-9.50) RBC 4.13 10^6/uL L 10^6/uL (4.18-5.33) Hgb 12.8 g/dL g/dL (12.6-16.3) Hct 39.2 % % (38.0-47.0) MCV 94.9 fL fL (81.5-99.8) MCH 31.0 pg pg (27.9-34.1) MCHC 32.7 g/dL g/dL (32.4-36.7) RDW 13.7 % % (11.5-15.2) Plt Count 234 10^3/uL 10^3/uL (150-400) MPV 10.4 fL fL (8.7-11.7) Neut % (Auto) 67.9 % % (39.3-74.2) Lymph % (Auto) 17.9 % % (15.0-45.0) [place] % (Auto) 12.8 % % (4.5-13.0) Eos % (Auto) 0.8 % % (0.6-7.6) Baso % (Auto) 0.3 % % (0.3-1.7) Nucleat RBC Rel Count 0.0 % % (0.0-0.2) Absolute Neuts (auto) 6.18 10^3/uL 10^3/uL (1.70-6.50) Absolute Lymphs (auto) 1.63 10^3/uL 10^3/uL (1.00-3.00) Absolute Monos (auto) 1.17 10^3/uL H 10^3/uL (0.30-0.80) Absolute Eos (auto) 0.07 10^3/uL 10^3/uL (0.03-0.40) Absolute Basos (auto) 0.03 10^3/uL 10^3/uL (0.02-0.10) Absolute Nucleated RBC 0.00 10^3/uL 10^3/uL (0-0.01) Immature Gran % 0.3 % % (0.0-1.1) Immature Gran # 0.03 10^3/uL 10^3/uL (0.00-0.10) Sodium 141 mEq/L mEq/L (135-145) Potassium 3.8 mEq/L mEq/L (3.5-5.2) Chloride 107 mEq/L mEq/L (97-110) Carbon Dioxide 23 mEq/l mEq/l (22-31) Anion Gap 11 mEq/L mEq/L (8-16) BUN 21 mg/dL mg/dL (7-23) Creatinine 1.0 mg/dL mg/dL (0.6-1.0) Estimated GFR 53 Glucose 103 mg/dL H mg/dL (70-100) Calcium 9.3 mg/dL mg/dL (8.5-10.4) Troponin I < 0.012 ng/mL ng/mL (0.000-0.034) Departure - Departure Disposition: Home, Routine, Self-Care Clinical Impression: Pleurisy Condition: Good Instructions: Pleurisy (ED) Additional Instructions: Please use the breathing device every 15 min while awake. Is important to take the pain medications so that you take deep breaths and tone developed a pneumonia. Follow up with primary care physician in 2-3 days for further evaluation. Return to the emergency depart for increasing chest pain, shortness of breath, cough, fevers, or any other concerns. Referrals: Yessi Sampson MD [Primary Care Provider] - As per Instructions Prescriptions: Hydrocodone/Acetaminophen [Hydrocodon-Acetaminophen 5-325] 1 - 2 each PO Q4- 6PRN PRN #10 tablet PRN Reason: Pain, Severe
[2017-08-12 15:50] VITALS: RESP 18
[2017-08-12 16:06] VITALS: BP 104/68; PULSE 86; O2SAT 92
== END 2017-08-12 16:03 | disposition home or self-care (01) ==
DX: R09.1 Pleurisy (principal); Z79.82 Long term (current) use of aspirin
CPT/HCPCS: 71275; 93005; 99285; Q9967

== ENCOUNTER → 2018-02-28 | Outpatient (CLI) | payer OTHER | LOC: GIMAGING 17:00 | PROVIDERS: ATTEND Nurse Practitioner Acute Care | DX: M20.11 Hallux valgus (acquired), right foot (principal); M19.071 Primary osteoarthritis, right ankle and foot; M77.31 Calcaneal spur, right foot | CPT/HCPCS: 73630-PO ==

== ENCOUNTER 2018-06-28 11:38 | Emergency (ER) | payer OTHER ==
[2018-06-28 13:10] LABS: PLATELET COUNT 239 10^3/uL (150-400)
--- NOTE | 2018-06-28 13:33 | EDPHY ---
H & P Stated Complaint: urinary problems and l lower back pain Time Seen by Provider: 06/28/18 12:56 HPI/ROS: CHIEF COMPLAINT: Back pain, urinary frequency HISTORY OF PRESENT ILLNESS: 82-year-old female presents with back pain and urinary frequency. Onset of mid low back pain 3 days ago. The pain is bilateral, but mainly on the left. The pain increases with standing and bending and is alleviated with remaining still. No associated abd pain, chest pain or shortness of breath. However the pain feels similar to a prior pulmonary embolism 1 year ago. Not on anticoagulants currently. 2 days ago, onset of urinary frequency, now subsided. No dysuria. No prior history of kidney stones. REVIEW OF SYSTEMS: complete 10 point ROS reviewed and is negative except for the noted elements in the HPI Source: Patient, Family - Personal History Current Tetanus/Diphtheria Vaccine: Yes Current Tetanus Diphtheria and Acellular Pertussis (TDAP): Yes - Medical/Surgical History Hx Asthma: Yes Hx Chronic Respiratory Disease: No Hx Diabetes: No Hx Cardiac Disease: No Hx Renal Disease: No Hx Cirrhosis: No Hx Alcoholism: No Hx HIV/AIDS: No Hx Splenectomy or Spleen Trauma: No Other PMH: DEGENERATIVE JOINTS/PAIN, arthritis, chronic diarrhea, hypothyroid, L knee replacement, neck/spine surgery, glaucoma, hands reconstructed, appendectomy, glaucoma, bronchial problems, depression, hyperlipidemia/PE, chronic pain - Social History Smoking Status: Never smoked Alcohol Use: Sober Drug Use: None - Physical Exam Exam: General Appearance: Alert, pleasant, does not appear in pain Eyes: Pupils equal and round, no conjunctival pallor or injection ENT, Mouth: Mucous membranes moist Neck: Normal inspection Respiratory: Normal respiratory rate, lungs are clear to auscultation Cardiovascular: Regular rate and rhythm Gastrointestinal: Abdomen is soft, mild epigastric tenderness Back: Normal inspection, bilateral lumbar paraspinous tenderness Neurological: A&O, nonfocal exam Skin: Warm and dry, no rash Extremities: Nontender, no pedal edema Psychiatric: Mood and affect normal Constitutional: Initial Vital Signs Temperature (C) 36.7 C 06/28/18 11:46 Heart Rate 74 06/28/18 11:46 Respiratory Rate 16 06/28/18 11:46 Blood Pressure 98/68 L 06/28/18 11:46 O2 Sat (%) 93 06/28/18 11:46 O2 Delivery Mode Room Air Allergies/Adverse Reactions: celecoxib [From Celebrex] Allergy (Severe, Verified 08/12/17 11:04) Hives Penicillins Allergy (Unknown, Verified 08/12/17 11:04) Home Medications: Medication Instructions Recorded Gabapentin [Neurontin 100 MG (*)] 500 mg PO HS 08/23/15 traMADol [Ultram 50 mg (*)] 50 mg PO Q4 PRN 08/23/15 Aspirin [Aspirin 81mg (*)] 81 mg PO DAILY 09/03/16 Bimatoprost 0.01% [Lumigan 0.01% 1 drops EACHEYE HS 09/03/16 (*)] Budesonide [Uceris] 9 mg PO DAILY 09/03/16 Herbals/Supplements -Info Only 1 ea PO DAILY 09/03/16 Levothyroxine [Synthroid 100 mcg 100 mcg PO DAILY06 09/03/16 (*)] Multivitamins [Multivitamin (*)] 1 each PO DAILY 09/03/16 Simvastatin 40 mg PO HS 09/03/16 Albuterol [Proventil Inhaler HFA 1 - 2 puffs IH Q4H PRN #1 mdi 09/09/16 (*)] Medical Decision Making - Diagnostics EKG Interpretation: EKG interpreted by me reveals normal sinus rhythm, rate 73, no ST or T segment changes. Interpretation: Normal EKG Imaging Results: CTA chest read by the radiologist: no evidence of PE Imaging: Discussed imaging studies w/ book trimmer Radiologist ED Course/Re-evaluation: This pt presents with back pain and urinary frequency. Her main concern is possibility of PE. Clinical presentation most c/w back strain. Doubt pyelo given lack of fever, vomiting, flank pain and doubt kidney stone given quality of pain. d/w pt and daughter, will obtain UA and d-dimer. If d-dimer elevated , will proceed with CTA chest. UA negative; no UTI or hematuria. d-dimer elevated, more than expected for age. 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 Results d/w pt. Musculoskeletal etiology for LBP, will continue OTC meds, consider lidocaine patch. Differential Diagnosis: includes though not limited to PE, UTI, pyelo, kidney stone, compression fx, AAA - Data Points Laboratory Results: Laboratory Results 06/28/18 13:00 06/28/18 13:00 Departure - Departure Disposition: Home, Routine, Self-Care Clinical Impression: Low back pain Qualifiers: Chronicity: acute Back pain laterality: bilateral Sciatica presence: without sciatica Qualified Code(s): M54.5 - Low back pain Condition: Good Instructions: Low Back Strain (ED) Additional Instructions: Tylenol 650 mg every 4 hr as needed for back pain. Return for worsening symptoms or any concerns. You do not have a blood clot in your lungs. Referrals: Yessi Sampson MD [Primary Care Provider] - As per Instructions
[2018-06-28] MEDS ORDERED: IOPAMIDOL (ISOVUE 370) 100 ML BTL IV ONE (13:46)
[2018-06-28 15:02] VITALS: BP 117/65
--- NOTE | 2018-06-28 20:52 | CPEKG ---
Test Reason : OPEN Blood Pressure : / mmHG Vent. Rate : 073 BPM Atrial Rate : 074 BPM P-R Int : 188 ms QRS Dur : 098 ms QT Int : 392 ms P-R-T Axes : 028 -02 017 degrees QTc Int : 432 ms Sinus rhythm Confirmed by Annette Chavez ([id number]) on 06/28/2018 8:51:28 PM Referred By: Confirmed By:Annette Chavez
== END 2018-06-28 15:02 | disposition home or self-care (01) ==
DX: M54.5 Low back pain (principal); R35.0 Frequency of micturition
CPT/HCPCS: 71275; 93005; 99285; Q9967

== ENCOUNTER 2018-09-18 10:56 | Emergency (ER) | payer OTHER ==
[2018-09-18] MEDS ORDERED: NS 1,000 ML IV ONE (11:20)
--- NOTE | 2018-09-18 11:33 | EDPHY ---
HPI/HX/ROS/PE/MDM Narrative: CHIEF COMPLAINT: Weakness, fever, diarrhea. HPI: This patient is a pleasant 82-year-old patient with history of colitis. She presents today complaining of weakness and fever. She has had a large amount of diarrhea beginning Sunday and has nina feeling weak. Last night, she noted her temperature was around 100.5. She endorses confusion as well and was not sure what day it was earlier. She has had a sore throat and intermittent cough. She has been staying well hydrated, but has not eaten since Sunday. No dysuria. No recent antibiotics, international travel, or contact with ill persons with similar symptoms. REVIEW OF SYSTEMS: A comprehensive 10 system review of systems is otherwise negative aside from elements mentioned in the history of present illness and medical decision making. PMH: Arthritis. Torn rotator cuffs. Colitis. SOCIAL HISTORY: Daughter at bedside. Retired. PHYSICAL EXAM: General:Patient is alert, in no acute distress. ENT:Eyes are normal to inspection. ENT inspection normal. Neck: Normal inspection. Full range of motion. Respiratory:No respiratory distress. Breath sounds normal bilaterally. Cardiovascular: Regular rate and rhythm. Strong peripheral pulses. Normal cap refill. Abdomen: Mild periumbilical tenderness. There are no peritoneal signs. There are normal bowel sounds. Back: Normal to inspection. No tenderness to palpation. Skin: Normal color. No rash. Warm and dry. Extremities: Normal appearance. Full range of motion. Neuro: Oriented x3. Normal motor function. Normal sensory function. ED Course: 82 y/o female with history of colitis presents with weakness, fever, and diarrhea. Plan for labs including CBC, chemistries, UA, GI pathogen PCR, flu swab. Plan to administer 1L IV NS. Reviewed laboratory studies. UA positive for UTI. Labs otherwise largely unremarkable. Flu swab negative. Reassessed. Discussed laboratory results. 14:30 Reassessed. Patient has been unable to provide a stool sample. She has been in the department for about three and a half hours at this point. I am less suspicious for a serious diarrheal illness given this. The patient understands that without a sample, we cannot rule out diarrheal illnesses including c. difficile colitis. The patient is comfortable with discharge home at this time. Plan to discharge in good condition with prescription for Macrobid. Urine cultures are pending. Follow up and return precautions discussed. She is comfortable with this plan. - Data Points Laboratory Results: Laboratory Results 09/18/18 11:28 09/18/18 11:28 09/18/18 09/18/18 09/18/18 12:47 11:28 11:28 WBC RBC Hgb Hct MCV MCH MCHC RDW Plt Count MPV Neut % (Auto) Lymph % (Auto) [place] % (Auto) Eos % (Auto) Baso % (Auto) Nucleat RBC Rel Count Absolute Neuts (auto) Absolute Lymphs (auto) Absolute Monos (auto) Absolute Eos (auto) Absolute Basos (auto) Absolute Nucleated RBC Immature Gran % Immature Gran # Sodium 139 mEq/L mEq/L (135-145) Potassium 4.0 mEq/L mEq/L (3.5-5.2) Chloride 109 mEq/L mEq/L (97-110) Carbon Dioxide 19 mEq/l L mEq/l (22-31) Anion Gap 11 mEq/L mEq/L (6-14) BUN 21 mg/dL mg/dL (7-23) Creatinine 0.9 mg/dL mg/dL (0.6-1.0) Estimated GFR 60 Glucose 95 mg/dL mg/dL (70-100) Calcium 9.3 mg/dL mg/dL (8.5-10.4) Urine Color YELLOW Urine Appearance HAZY Urine pH 5.0 (5.0-7.5) Ur Specific [place] 1.018 (1.002-1.030) Urine Protein NEGATIVE (NEGATIVE) Urine Ketones NEGATIVE (NEGATIVE) Urine Blood NEGATIVE (NEGATIVE) Urine Nitrate NEGATIVE (NEGATIVE) Urine Bilirubin NEGATIVE (NEGATIVE) Urine Urobilinogen NEGATIVE EU EU (0.2-1.0) Ur Leukocyte Esterase 2+ H (NEGATIVE) Urine RBC 1-3 /hpf /hpf (0-3) Urine WBC 10-15 /hpf H /hpf (0-3) Ur Epithelial Cells 1+ /lpf /lpf (NONE-1+) Urine Mucus TRACE /lpf /lpf (NONE-1+) Urine Glucose NEGATIVE (NEGATIVE) Nasal Influenza A PCR NEGATIVE FOR FLU A (NEGATIVE) Nasal Influenza B PCR NEGATIVE FOR FLU B (NEGATIVE) 09/18/18 11:28 WBC 6.67 10^3/uL 10^3/uL (3.80-9.50) RBC 4.44 10^6/uL 10^6/uL (4.18-5.33) Hgb 13.0 g/dL g/dL (12.6-16.3) Hct 40.2 % % (38.0-47.0) MCV 90.5 fL fL (81.5-99.8) MCH 29.3 pg pg (27.9-34.1) MCHC 32.3 g/dL L g/dL (32.4-36.7) RDW 15.6 % H % (11.5-15.2) Plt Count 247 10^3/uL 10^3/uL (150-400) MPV 9.2 fL fL (8.7-11.7) Neut % (Auto) 57.2 % % (39.3-74.2) Lymph % (Auto) 26.4 % % (15.0-45.0) Child[place] % (Auto) 11.2 % % (4.5-13.0) Eos % (Auto) 4.8 % % (0.6-7.6) Baso % (Auto) 0.1 % L % (0.3-1.7) Nucleat RBC Rel Count 0.0 % % (0.0-0.2) Absolute Neuts (auto) 3.81 10^3/uL 10^3/uL (1.70-6.50) Absolute Lymphs (auto) 1.76 10^3/uL 10^3/uL (1.00-3.00) Absolute Monos (auto) 0.75 10^3/uL 10^3/uL (0.30-0.80) Absolute Eos (auto) 0.32 10^3/uL 10^3/uL (0.03-0.40) Absolute Basos (auto) 0.01 10^3/uL L 10^3/uL (0.02-0.10) Absolute Nucleated RBC 0.00 10^3/uL 10^3/uL (0-0.01) Immature Gran % 0.3 % % (0.0-1.1) Immature Gran # 0.02 10^3/uL 10^3/uL (0.00-0.10) Sodium Potassium Chloride Carbon Dioxide Anion Gap BUN Creatinine Estimated GFR Glucose Calcium Urine Color Urine Appearance Urine pH Ur Specific [place] Urine Protein Urine Ketones Urine Blood Urine Nitrate Urine Bilirubin Urine Urobilinogen Ur Leukocyte Esterase Urine RBC Urine WBC Ur Epithelial Cells Urine Mucus Urine Glucose Nasal Influenza A PCR Nasal Influenza B PCR Medications Given: Discontinued Medications Sodium Chloride (Ns) 1,000 mls @ 0 mls/hr IV EDNOW ONE; Wide Open PRN Reason: Protocol Stop: 09/18/18 11:21 Last Admin: 09/18/18 11:22 Dose: 1,000 mls General Time Seen by Provider: 09/18/18 11:10 Initial Vital Signs: Initial Vital Signs Temperature (C) 36.7 C 09/18/18 11:06 Heart Rate 90 09/18/18 11:06 Respiratory Rate 18 09/18/18 11:06 Blood Pressure 102/68 09/18/18 11:06 O2 Sat (%) 93 09/18/18 11:06 O2 Delivery Mode Room Air Allergies/Adverse Reactions: celecoxib [From Celebrex] Allergy (Severe, Verified 08/12/17 11:04) Hives Penicillins Allergy (Unknown, Verified 08/12/17 11:04) Home Medications: Medication Instructions Recorded Gabapentin [Neurontin 100 MG (*)] 500 mg PO HS 08/23/15 traMADol [Ultram 50 mg (*)] 50 mg PO Q4 PRN 08/23/15 Aspirin [Aspirin 81mg (*)] 81 mg PO DAILY 09/03/16 Bimatoprost 0.01% [Lumigan 0.01% 1 drops EACHEYE HS 09/03/16 (*)] Budesonide [Uceris] 9 mg PO DAILY 09/03/16 Herbals/Supplements -Info Only 1 ea PO DAILY 09/03/16 Levothyroxine [Synthroid 100 mcg 100 mcg PO DAILY06 09/03/16 (*)] Multivitamins [Multivitamin (*)] 1 each PO DAILY 09/03/16 Simvastatin 40 mg PO HS 09/03/16 Nitrofurantoin Monohyd/M-Cryst 100 mg PO BID #10 capsule 09/18/18 [Macrobid 100 mg Capsule] Departure - Departure Disposition: Home, Routine, Self-Care Clinical Impression: UTI (urinary tract infection) Qualifiers: Urinary tract infection type: acute cystitis Hematuria presence: without hematuria Qualified Code(s): N30.00 - Acute cystitis without hematuria Condition: Good Instructions: Urinary Tract Infection in Women (ED) Additional Instructions: Follow-up with your primary doctor within 72 hours. Take Macrobid as prescribed. Return to the Emergency Department for fever, worsening pain, flank pain or failure to improve within 72 hours. It is possible that the bacteria causing your infection is resistant to the antibiotic we've placed you on. We have sent a urine for culture, if this comes back with a resistant bacteria, we will call you at the number you provided to us. Referrals: Yessi Sampson MD [Primary Care Provider] - As per Instructions Prescriptions: Nitrofurantoin Monohyd/M-Cryst [Macrobid 100 mg Capsule] 100 mg PO BID #10 capsule Report Scribed for: Kishan Valencia Report Scribed by: Missy Rachel Date of Report: 09/18/18 Time of Report: 12:45 Physician Review and Approval Statement: Portions of this note were transcribed by an ED scribe. I personally performed the history, physical exam, and medical decision making; and confirm the accuracy of the information in the transcribed note.
[2018-09-18 11:38] LABS: PLATELET COUNT 247 10^3/uL (150-400)
[2018-09-18 14:49] VITALS: BP 119/76
== END 2018-09-18 14:49 | disposition home or self-care (01) ==
DX: N30.00 Acute cystitis without hematuria (principal); R19.7 Diarrhea, unspecified; R53.1 Weakness; E86.9 Volume depletion, unspecified

== ENCOUNTER 2018-09-25 19:48 | Inpatient (IN) | payer OTHER ==
[2018-09-25] MEDS ORDERED: NS 1,000 ML IV ONE (20:00)
[2018-09-25] MEDS ORDERED: ONDANSETRON 4 MG/2 ML VIAL IVP ONE (20:00)
[2018-09-25] MEDS ORDERED: KETOROLAC 30 MG/1 ML SDV IVP ONE (20:03)
--- NOTE | 2018-09-25 20:10 | EDPHY ---
H & P Source: Patient <Gay Morton - Last Filed: 09/26/18 04:22> Stated Complaint: n/v/d weakness Source: Patient Exam Limitations: No limitations - Personal History Current Tetanus/Diphtheria Vaccine: Yes Current Tetanus Diphtheria and Acellular Pertussis (TDAP): Yes - Medical/Surgical History Hx Asthma: Yes Hx Chronic Respiratory Disease: No Hx Diabetes: No Hx Cardiac Disease: No Hx Renal Disease: No Hx Cirrhosis: No Hx Alcoholism: No Hx HIV/AIDS: No Hx Splenectomy or Spleen Trauma: No Other PMH: DEGENERATIVE JOINTS/PAIN, arthritis, chronic diarrhea, hypothyroid, L knee replacement, neck/spine surgery, glaucoma, hands reconstructed, appendectomy, glaucoma, bronchial problems, depression, hyperlipidemia/PE, chronic pain - Family History Significant Family History: No pertinent family hx - Social History Smoking Status: Never smoked Alcohol Use: None <Logan Oates - Last Filed: 09/26/18 16:31> Time Seen by Provider: 09/25/18 19:57 HPI/ROS: CHIEF COMPLAINT: Nausea vomiting diarrhea HISTORY OF PRESENT ILLNESS: Patient is an 82-year-old female who comes to the emergency department complaining of nausea vomiting diarrhea for the last 16 hr. She states that she has a history of microscopic colitis and has chronic diarrhea but today her episodes have been more explosive. She has had 4 episodes. Nonbloody. She has also had 4 episodes of vomiting, nonbloody. She has not had a fever. She was seen here about a week ago for diarrhea but states that that resolved and new symptoms began today. When she was seen here a week ago she was diagnosed with a urinary tract infection and started on Macrobid. She did finish this. No recent travel. No sick contact. She is complaining of global weakness. Severity: Moderate Modifying factors: None REVIEW OF SYSTEMS: Constitutional: denies: chills, fever, recent illness, recent injury EENTM: denies: blurred vision, double vision, nose congestion Respiratory: denies: cough, shortness of breath Cardiac: denies: chest pain, irregular heart rate, lightheadedness, palpitations Gastrointestinal/Abdominal: denies: abdominal pain, diarrhea, nausea, vomiting, blood streaked stools Genitourinary: denies: dysuria, frequency, hematuria, pain Musculoskeletal: denies: joint pain, muscle pain Skin: denies: lesions, rash, jaundice, bruising Neurological: denies: headache, numbness, paresthesia, tingling, dizziness, weakness Hematologic/Lymphatic: denies: blood clots, easy bleeding, easy bruising Immunologic/allergic: denies: HIV/AIDS, transplant 10 systems reviewed and negative except as noted EXAM: GENERAL: Somewhat anxious, no acute distress HEAD: Atraumatic, normocephalic. EYES: Pupils equal round and reactive to light, extraocular movements intact, sclera anicteric, conjunctiva are normal. ENT: TMs normal, nares patent, oropharynx clear without exudates. Dry mucous membranes. NECK: Normal range of motion, supple without lymphadenopathy or JVD. LUNGS: Breath sounds clear to auscultation bilaterally and equal. No wheezes rales or rhonchi. HEART: Regular rate and rhythm without murmurs, rubs or gallops. ABDOMEN: Soft, nontender, normoactive bowel sounds. No guarding, no rebound. No masses appreciated. BACK: No CVA tenderness, no spinal tenderness, step-offs or deformities EXTREMITIES: Normal range of motion, no pitting or edema. No clubbing or cyanosis. NEUROLOGICAL: Cranial nerves II through XII grossly intact. Normal speech, normal gait. 5/5 strength, normal movement in all extremities, normal sensation , normal reflexes PSYCH: Normal mood, normal affect. SKIN: Warm, dry, normal turgor, no visible rashes or lesions. (Logan Oates) Constitutional: Initial Vital Signs Temperature (C) 37.6 C 09/25/18 19:52 Heart Rate 95 09/25/18 19:52 Respiratory Rate 16 09/25/18 19:52 Blood Pressure 102/58 L 09/25/18 19:52 O2 Sat (%) 90 L 09/25/18 19:52 O2 Delivery Mode Nasal Cannula O2 (L/minute) 3 Allergies/Adverse Reactions: celecoxib [From Celebrex] Allergy (Severe, Verified 09/25/18 19:51) Hives Penicillins Allergy (Unknown, Verified 09/26/18 09:42) Hives Home Medications: Medication Instructions Recorded Gabapentin [Neurontin 100 MG (*)] 500 mg PO HS 08/23/15 Aspirin [Aspirin 81mg (*)] 81 mg PO DAILY 09/03/16 Bimatoprost 0.01% [Lumigan 0.01% 1 drops EACHEYE HS 09/03/16 (*)] Budesonide [Uceris] 9 mg PO DAILY 09/03/16 Levothyroxine [Synthroid 100 mcg 100 mcg PO DAILY06 09/03/16 (*)] Simvastatin 40 mg PO HS 09/03/16 Ondansetron Odt [Zofran Odt 4 mg 4 mg PO Q4 PRN #20 tab 09/25/18 (RX)] Medical Decision Making <Gay Morton - Last Filed: 09/26/18 04:22> - Diagnostics Imaging: Discussed imaging studies w/ square dance caller Radiologist <Logan Oates - Last Filed: 09/26/18 16:31> - Diagnostics Imaging Results: Imaging Impressions Chest X-Ray 09/25/18 23:22 Impression: 1. No evidence for overt CHF. 2. Tiny left pleural effusion 3. Likely a small area of atelectasis at the left base. Head CT 09/25/18 23:29 Impression: 1. No acute intracranial hemorrhage. 2. No significant change in moderate chronic microvascular ischemic disease and age-related atrophy. With clinical concern for acute ischemia, MRI is recommended. 3. Nonspecific hyperdense blood pool which can be associated with dehydration/ hemoconcentration/polycythemia. Final results are concordant with initial interpretation. Preliminary report was communicated to the referring provider at 12:06 AM. RAMANA. Chest/Thorax CTA 09/25/18 23:45 Impression: 1. No evidence for pulmonary embolic disease. Final results are concordant with initial interpretation. Preliminary report was communicated to the referring provider at 1:31 AM. RAMANA. ED Course/Re-evaluation: 11:23 p.m.- I was called to evaluate the patient because her blood pressure was 64/48. She had gotten up to go to the bathroom, she had felt dizzy. Her oxygen saturation was noted to be at approximately 71%. She required 4 L of oxygen for improvement in her oxygenation. She feels mildly short of breath, she uses 2 L of oxygen nightly usually. She says she is mostly feeling thirsty and dizzy currently. I performed a bedside abdominal ultrasound which shows a plump IVC which is not easily collapsible making hypovolemia as less likely cause of her hypotension. She did finish a course of Macrobid for UTI last week. She is not on any new medications. She does say her blood pressure can run low, however never this low. I discussed the case with Dr. Saldana of the hospitalist service and we will admit the patient. (Gay Morton) 9:[address] and lab results which are all very reassuring. Her abdominal exam remains benign. Will give her a p. O. Challenge and hang a 2nd L of fluids. Still appears clinically dehydrated. Has not yet been able to provide stool sample. 10:15 p.m. the patient is feeling much better. She has received 2 L of fluid. She has been tolerating p.o.. Will give her road test and try to get a stool sample. She is requesting a home kit if she cannot have a bowel movement here. 10:30 p.m. the patient is feeling much better. She is able to ambulate without difficulty to bathroom. She was able to provide a stool sample. Will send for cultures. Will discharge with Maddi. (Logan Oates) Differential Diagnosis: Partial list of the Differential diagnosis considered include but were not limited to; gastritis, food poisoning, C difficile and although unlikely based on the history and physical exam, I also considered urinary tract infection,, sepsis, obstruction, ischemia, volvulus. I discussed these differential diagnoses and the plan with the patient as well as the usual and expected course. The patient understands that the diagnosis is provisional and that in medicine we are not always correct and that further workup is often warranted. Usual and customary warnings were given. All of the patient's questions were answered. The patient was instructed to return to the emergency department should the symptoms at all worsen or return, otherwise to followup with the physician as we discussed. (Logan Oates) - Data Points Laboratory Results: Laboratory Results 09/25/18 20:05 09/25/18 20:05 Microbiology Results: MICROBIOLOGY 09/25/18 22:20 Stool Gastrointestinal Tract Panel (PCR) - Final Clostridium Difficile Detected Medications Given: Enoxaparin Sodium (Lovenox) 30 mg SC DAILY SEVEN Stop: 03/25/19 08:59 Last Admin: 09/26/18 10:45 Dose: 30 mg Potassium Chloride/Sodium Chloride (Ns W/ 20 Kcl/L) 1,000 mls @ 100 mls/hr IV CONT SEVEN Stop: 03/24/19 23:29 Last Admin: 09/26/18 13:12 Dose: 1,000 mls Levothyroxine Sodium (Synthroid) 100 mcg PO DAILY06 SEVEN Stop: 03/25/19 13:44 Last Admin: 09/26/18 15:17 Dose: 100 mcg Pantoprazole Sodium (Protonix) 40 mg IVP BID SEVEN Stop: 03/25/19 14:29 Last Admin: 09/26/18 15:17 Dose: 40 mg Vancomycin HCl (Vancomycin Oral Liquid) 125 mg PO QID SEVEN PRN Reason: Protocol Stop: 10/26/18 11:59 Last Admin: 09/26/18 16:11 Dose: 125 mg Discontinued Medications Sodium Chloride (Ns) 1,000 mls @ 0 mls/hr IV EDNOW ONE; Wide Open PRN Reason: Protocol Stop: 09/25/18 20:01 Last Admin: 09/25/18 20:06 Dose: 1,000 mls Sodium Chloride (Ns) 250 mls @ 250 mls/hr IV ONCE ONE Stop: 09/26/18 16:08 Last Admin: 09/26/18 15:31 Dose: 250 mls Ketorolac Tromethamine (Toradol) 15 mg IVP EDNOW ONE Stop: 09/25/18 20:04 Last Admin: 09/25/18 20:09 Dose: 15 mg Ondansetron HCl (Zofran) 4 mg IVP EDNOW ONE Stop: 09/25/18 20:01 Last Admin: 09/25/18 20:06 Dose: 4 mg Ondansetron HCl (Zofran Odt 4 Mg Prepack#2) 1 btl TAKEHOME EDNOW ONE Stop: 09/25/18 22:36 Last Admin: 09/25/18 23:24 Dose: Not Given Departure <Gay Morton - Last Filed: 09/26/18 04:22> <Logan Oates - Last Filed: 09/26/18 16:31> - Departure Disposition: [facility] Clinical Impression: Acute gastroenteritis, Dehydration, Hypoxia Hypotension Qualifiers: Hypotension type: unspecified hypotension type Qualified Code(s): I95.9 - Hypotension, unspecified Condition: Fair
[2018-09-25 20:18] LABS: PLATELET COUNT 299 10^3/uL (150-400)
[2018-09-25 20:23] LABS: INR 0.92 (0.83-1.16)
[2018-09-25] MEDS ORDERED: IOPAMIDOL (ISOVUE-300) 100 ML BTL ONE (20:26)
[2018-09-25] MEDS ORDERED: ONDANSETRON 4MG PREPACK#2 BTL TAKEHOME ONE (22:35)
[2018-09-25] MEDS ORDERED: ONDANSETRON DISINTEGRATING 4 MG TAB PO PRN (23:30)
[2018-09-25] MEDS ORDERED: ONDANSETRON 4 MG/2 ML VIAL IVP PRN (23:30)
[2018-09-25] MEDS ORDERED: PROMETHAZINE HCL 25 MG/ML INJ IVP PRN (23:30)
[2018-09-25] MEDS ORDERED: IOPAMIDOL (ISOVUE 370) 100 ML BTL IV ONE (23:50)
[2018-09-26] MEDS ORDERED: IOPAMIDOL (ISOVUE 370) 100 ML BTL IV ONE (00:11)
--- NOTE | 2018-09-26 01:45 | PDGENHP ---
History and Physical - Chief Complaint Diarrhea - History of Present Illness 82 yo F w/ hx of hypothyroid, microscopic colitis, and DVT/PE presents with nausea, vomiting, and diarrhea. The patient has chronic diarrhea due to microscopic colitis. Today, however, she had 5 loose BMs and also several vomiting episodes. Vomiting is very unusual for her. She has been able to drink water but little food. She was planning to be discharged but when she got up to walk she felt lightheaded. Her systolic blood pressure was in the 70's during this episode and her O2 needs transiently increased. She usually wears 2 L/min at night only. She is being admitted for further evaluation. Case discussed with ED physician Dr. Morton; recordsr reviewed and summarized above. History Information - Allergies/Home Medication List Allergies/Adverse Reactions: celecoxib [From Celebrex] Allergy (Severe, Verified 09/25/18 19:51) Hives Penicillins Allergy (Unknown, Verified 09/25/18 19:51) Home Medications: Gabapentin [Neurontin 100 MG (*)] 500 mg PO HS 08/23/15 [Last Taken 08/22/15 18: 00] traMADol [Ultram 50 mg (*)] 50 mg PO Q4 PRN 08/23/15 [Last Taken 12/27/15] Aspirin [Aspirin 81mg (*)] 81 mg PO DAILY 09/03/16 [Last Taken Unknown] Bimatoprost 0.01% [Lumigan 0.01% (*)] 1 drops EACHEYE HS 09/03/16 [Last Taken Unknown] Budesonide [Uceris] 9 mg PO DAILY 09/03/16 [Last Taken Unknown] Herbals/Supplements -Info Only 1 ea PO DAILY 09/03/16 [Last Taken Unknown] Levothyroxine [Synthroid 100 mcg (*)] 100 mcg PO DAILY06 09/03/16 [Last Taken Unknown] Multivitamins [Multivitamin (*)] 1 each PO DAILY 09/03/16 [Last Taken Unknown] Simvastatin 40 mg PO HS 09/03/16 [Last Taken Unknown] I have personally reviewed and updated: family history, medical history - Past Medical History Additional medical history: Pulmonary embolism and deep venous thrombosis in December of 2015 with 6 subsequent months of Eliquis and then discontinued after negative lower extremity ultrasound in July of 2016 as well as numerous mechanical falls. Nocturnal hypoxia. Glaucoma. Chronic diarrhea. Osteoarthritis, left greater than right shoulder - Surgical History Additional surgical history: Next surgery, spine surgery, left total knee replacement, breast lumpectomy - Family History Additional family history: Venous thromboembolism - Social History Smoking Status: Never smoked Alcohol Use: None Additional social history: [place] Review of Systems Review of Systems: ROS: 10pt was reviewed & negative except for what was stated in HPI & below Physical Exam Physical Exam: Temp Pulse Resp BP Pulse Ox 36.7 C 72 16 85/45 L 95 09/26/18 00:25 09/26/18 00:25 09/26/18 00:25 09/26/18 00:25 09/26/18 00:25 Constitutional: chronically ill appearing, uncomfortable Eyes: PERRL, EOMI Ears, Nose, Mouth, Throat: moist mucous membranes, no oral mucosal ulcers Cardiovascular: regular rate and rhythym, systolic murmur Respiratory: no respiratory distress, clear to auscultation Gastrointestinal: normoactive bowel sounds, soft, non-tender abdomen Skin: warm, normal color Musculoskeletal: full muscle strength, no muscle tenderness Neurologic: AAOx3, CN II-XII Intact Psychiatric: interacting appropriately, not anxious Lab Data & Imaging Review 09/25/18 20:05 09/25/18 20:05 WBC 12.04 10^3/uL (3.80-9.50) H 09/25/18 20:05 RBC 4.40 10^6/uL (4.18-5.33) 09/25/18 20:05 Hgb 13.1 g/dL (12.6-16.3) 09/25/18 20:05 Hct 40.9 % (38.0-47.0) 09/25/18 20:05 MCV 93.0 fL (81.5-99.8) 09/25/18 20:05 MCH 29.8 pg (27.9-34.1) 09/25/18 20:05 MCHC 32.0 g/dL (32.4-36.7) L 09/25/18 20:05 RDW 15.2 % (11.5-15.2) 09/25/18 20:05 Plt Count 299 10^3/uL (150-400) 09/25/18 20:05 MPV 9.3 fL (8.7-11.7) 09/25/18 20:05 Neut % (Auto) 84.4 % (39.3-74.2) H 09/25/18 20:05 Lymph % (Auto) 5.1 % (15.0-45.0) L 09/25/18 20:05 [place] % (Auto) 9.0 % (4.5-13.0) 09/25/18 20:05 Eos % (Auto) 0.7 % (0.6-7.6) 09/25/18 20:05 Baso % (Auto) 0.2 % (0.3-1.7) L 09/25/18 20:05 Nucleat RBC Rel Count 0.0 % (0.0-0.2) 09/25/18 20:05 Absolute Neuts (auto) 10.17 10^3/uL (1.70-6.50) H 09/25/18 20:05 Absolute Lymphs (auto) 0.62 10^3/uL (1.00-3.00) L 09/25/18 20:05 Absolute Monos (auto) 1.08 10^3/uL (0.30-0.80) H 09/25/18 20:05 Absolute Eos (auto) 0.08 10^3/uL (0.03-0.40) 09/25/18 20:05 Absolute Basos (auto) 0.02 10^3/uL (0.02-0.10) 09/25/18 20:05 Absolute Nucleated RBC 0.00 10^3/uL (0-0.01) 09/25/18 20:05 Immature Gran % 0.6 % (0.0-1.1) 09/25/18 20:05 Immature Gran # 0.07 10^3/uL (0.00-0.10) 09/25/18 20:05 PT 12.0 SEC (12.0-15.0) 09/25/18 20:05 INR 0.92 (0.83-1.16) 09/25/18 20:05 APTT 24.9 SEC (23.0-38.0) 09/25/18 20:05 D-Dimer 6.11 ug/mLFEU (0.00-0.50) H 09/25/18 20:05 VBG Lactic Acid 1.3 mmol/L (0.7-2.1) 09/26/18 00:15 Sodium 139 mEq/L (135-145) 09/25/18 20:05 Potassium 3.6 mEq/L (3.5-5.2) 09/25/18 20:05 Chloride 108 mEq/L (97-110) 09/25/18 20:05 Carbon Dioxide 20 mEq/l (22-31) L 09/25/18 20:05 Anion Gap 11 mEq/L (6-14) 09/25/18 20:05 BUN 21 mg/dL (7-23) 09/25/18 20:05 Creatinine 1.1 mg/dL (0.6-1.0) H 09/25/18 20:05 Estimated GFR 47 09/25/18 20:05 Glucose 110 mg/dL (70-100) H 09/25/18 20:05 Calcium 9.5 mg/dL (8.5-10.4) 09/25/18 20:05 Total Bilirubin 0.5 mg/dL (0.1-1.4) 09/25/18 20:05 Conjugated Bilirubin 0.4 mg/dL (0.0-0.5) 09/25/18 20:05 Unconjugated Bilirubin 0.1 mg/dL (0.0-1.1) 09/25/18 20:05 AST 36 IU/L (14-46) 09/25/18 20:05 ALT 46 IU/L (9-52) 09/25/18 20:05 Alkaline Phosphatase 70 IU/L (38-126) 09/25/18 20:05 Total Protein 7.3 g/dL (6.3-8.2) 09/25/18 20:05 Albumin 4.3 g/dL (3.5-5.0) 09/25/18 20:05 Lipase 263 IU/L (23-300) 09/25/18 20:05 Imaging Review: Imaging Impressions Abdomen CT 09/25/18 20:23 Impression: 1. Fluid-filled loops of colon and ileum suggesting nonspecific enteritis. 2. No evidence of bowel obstruction, diverticulitis, abscess, or pneumoperitoneum. 3. Degenerative spine and scoliosis. 4. Atherosclerotic aorta, without aneurysm. Findings and recommendations discussed with Emergency Department physician, Logan Oates M.D., at 2102 hours, on September 25, 2018. Final report concurs with initial preliminary interpretation. Assessment & Plan Assessment: 82 yo F w/ hx of hypothyroid, microscopic colitis, and DVT/PE presents with enteritis; developed hypotension and hyoxia while here. Plan: 1. Enteritis - Possibly infectious noting acute nature. CT(personally reviewed/ interpreted) demonstrates nonspecific enteritis. She does have chronic colitis but states these symptoms are worse than baseline. - Admit for observation - mIVF, anti-emetics PRN - GI PCR ordered 2. Hypotension - Systolic in the 70's noted when she go tup to walk while in the ED. This could represent orthostatic hypotension from diarrhea. She does have hx of PE and elevated D-dimer so PE will be ruled out. - CTA ordered for further evaluation - Continue IVF 3. Hypoxia - She usually wears 2 L/min only at night; currently requiring 2-3 L/ min continuously. - CTA as above - Incentive spirometry ordered - Continue O2 PRN 4. Hx DVT/PE - Hx of DVT/PE in 2015, she was treated with 6 months of apixaban at that time. 5. Hypothyroid - Continue LTX Diet - Clears, ADAT Code - Full Ppx - LMWH Dispo - Admit under observation status
[2018-09-26] MEDS: NS W/ 20 KCl/L 1,000 ML IV SCH ×2 (03:16→13:12)
[2018-09-26] MEDS ORDERED: ENOXAPARIN 30 MG/0.3 ML SYR SC SCH (09:00)
[2018-09-26] MEDS: VANCOMYCIN 125 MG/2.5 ML UDL PO SCH ×3 (10:45→20:24)
[2018-09-26 11:34] LABS: PLATELET COUNT 223 10^3/uL (150-400)
--- NOTE | 2018-09-26 13:40 | HOSPPROG ---
Hospitalist Progress Note Assessment/Plan: 82 yo F w/ hx of hypothyroid, microscopic colitis, and DVT/PE presents with enteritis; developed hypotension and hypoxia while here. * c diff colitis -oral vancomycin -has had a hx of this, ? if she has colonization, symptoms not the same as she has had -CT scan notes nonspecific enteritis *BRBPR -said this has been ongoing for approximately 6 months -thought it was r/t hemorrhoids -hx of microscopic colitis *hypotension -still low -will give her a fluid bolus *ABLA -baseline hct closer to 40,now 30 -will place on PPI, hold Lovenox and asa -serial hgb and hct -spoke w Dr Thakur and he will see her -will need EGD and colonoscopy *hypoxia -CTA negative for PE *hx of PE, DVT *hypothyroid -synthroid *plan: cont clear liquids, serial hgb and hct, fluid bolus now. Will require another midnight stay. > 30 minutes seeing patient and evaluating her care. appreciate Dr Thakur seeing her. P Subjective: Chela said she has been tired and worn out. Objective: Vital Signs Temp Pulse Resp BP Pulse Ox 36.7 C 75 16 96/50 L 95 09/26/18 12:00 09/26/18 12:00 09/26/18 12:00 09/26/18 12:00 09/26/18 12:00 Laboratory Results 09/26/18 11:16 09/26/18 11:16 09/25/18 09/26/18 09/27/18 05:59 05:59 05:59 Intake Total 2250 Balance 2250 PT 12.0 SEC (12.0-15.0) 09/25/18 20:05 INR 0.92 (0.83-1.16) 09/25/18 20:05 - Physical Exam Constitutional: not in pain, uncomfortable Eyes: PERRL Ears, Nose, Mouth, Throat: hearing normal Cardiovascular: regular rate and rhythym Respiratory: no respiratory distress Gastrointestinal: No normoactive bowel sounds (slightly hyperactive) Skin: warm, No normal color (pale) Musculoskeletal: generalized weakness Neurologic: AAOx3 Psychiatric: interacting appropriately ICD10 Worksheet Patient Problems: Problems Problem Status Onset Acute gastroenteritis Acute Dehydration Acute Hypotension Acute Hypoxia Acute Accidental medication overdose Acute Confusion Acute Fall Acute Fever Acute Head injury Acute Hypoxemia Acute Low back pain Acute Pneumonia Acute Pulmonary embolism Acute Troponin level elevated Acute Weakness Acute
[2018-09-26] MEDS ORDERED: NS 250 ML IV ONE (15:09)
--- NOTE | 2018-09-26 15:09 | GCON ---
[f rep st] CONSULTATION DATE OF CONSULTATION: 09/26/2018 REFERRING PHYSICIAN: Elsa Nash NP Dear Elsa: Thank you very kindly for asking me to evaluate the patient for the rather new onset of periumbilical abdominal pain and diarrhea which started yesterday. She was noted to be Clostridium difficile PCR positive today, but has had hematochezia that started yesterday. She has had 2 bloody bowel movement s. Her daughter said the bowel movement yesterday at home was also bloody. It is bright red in colo r. The patient said she did not look at the stool yesterday, but did note today that it was quite bl oody. She has been nauseous with nonbloody vomiting, which also started yesterday. She denies any f ever or chills. She has had a diagnosis of microscopic colitis, which was established previously by Dr. Mirza Gold. She has been a little hypotensive today, and she is anemic by her most recent lab s. There is a clear drop in her hematocrit from baseline with this event. I am asked to assist with further evaluation and management. PAST MEDICAL HISTORY: Significant for DVT with pulmonary embolism treated with 6 months of Eliquis a nd now not currently anticoagulated. Microscopic colitis, glaucoma, osteoarthritis, history of falls , hyperlipidemia and hypothyroidism. PAST SURGICAL HISTORY: Lumbar fusion, total left knee replacement, breast lumpectomy. FAMILY HISTORY: Significant for DVT. MEDICATIONS ON ADMISSION: Include gabapentin, tramadol, aspirin, Lumigan, budesonide as needed for c olitis, Synthroid, multivitamin, simvastatin. ALLERGIES: Celebrex and penicillin. SOCIAL HISTORY: She lives independently at [place]. Her daughter is involved with her care and pérez s power of divorce attorney. No tobacco. No alcohol. No substance abuse. REVIEW OF SYSTEMS: 10-point review of systems is negative other than the History of Present Illness. PHYSICAL EXAM: VITAL SIGNS: Blood pressure is 96/50, heart rate 75, oxygenation is 95% saturation, with a respiratory rate of 16 on 2 L nasal cannula. T-max is 37.2. GENERAL: Pale female in no acut e distress. Alert and able to provide her own history. HEENT: Sclerae anicteric. Oropharynx clear . NECK: Supple. PULMONARY: Clear to auscultation bilaterally. CARDIOVASCULAR: Regular rate and rhythm without murmur, rub, or gallop. GI: Abdomen is soft and nontender. No organomegaly. Normal bowel sounds. No rebound or guarding. RECTAL: Shows bright red blood per rectum. No palpable mas s or lesion. MUSCULOSKELETAL: Normal. NEURO: Alert to person, place, and time. Normal speech and affect. Nonfocal exam. DATABASE: Includes white blood count is 10.2, hematocrit is 40.3, hematocrit 30.3, with an MCV of 95 .3, and platelets of 223. Hematocrit yesterday was 40.9. INR is 0.92. Sodium 138, potassium 3.7, c hloride 113, BUN 18, creatinine 1.0, bicarbonate is 19. LFTs are normal. Lipase is 263. Clostridiu m difficile PCR is positive on 09/25/2018. IMPRESSION: 1. Periumbilical abdominal pain. 2. Diarrhea. 3. Clostridium difficile colitis based on positive PCR. 4. Hematochezia. 5. Anemia secondary to acute blood loss. 6. Nausea with vomiting. RECOMMENDATIONS: 1. Clear liquid diet today. 2. N.p.o. after midnight. 3. One gallon of Colyte Split. 4. Upper endoscopy with colonoscopy tomorrow to evaluate her symptoms and bleeding. 5. Type and hold 2 units of packed cells. 6. IV PPI load with infusion. 7. Further recommendations to follow. /[id number]/MODL
--- NOTE | 2018-09-26 15:12 | ASMTCMCOM ---
CM Note CM Note Notes: 09/26/2018 Case Management Note Pt admitted for hypotension, vomiting and diarrhea. Met w/daughter Caro [phone]. Requested [facility] paperwork. Phone call from [facility] with [facility] [phone]. Pt resides in [place] but has purchased services that include help with showers, dressing and getting ready for bed. [facility] requested OT and PT evals to assess for home health needs. If home health is recommended pt will use [facility]. Faxed updates to [facility] through [employer]. Pt has previous SNF rehab stay at [facility]. Case Management d/c poc: to be determined. Case Management to follow. Date Signed: 09/26/2018 03:12 PM Electronically Signed By:Vashti Birch RN
[2018-09-26] MEDS: PANTOPRAZOLE SODIUM 40 MG VIAL IVP SCH ×2 (15:17→20:23)
[2018-09-26] MEDS: LEVOTHYROXINE 100 MCG TAB PO SCH (15:17)
[2018-09-26] MEDS ORDERED: PEG 3350/NA SULF,BICARB,CL/KCL (GAVILYTE-G) 4000 ML BTL PO ONE (18:00)
[2018-09-26] MEDS: ACETAMINOPHEN 325 MG TAB PO PRN (20:24)
[2018-09-26] MEDS: GABAPENTIN 100 MG CAP PO SCH (20:24)
[2018-09-26] MEDS: BIMATOPROST 0.01% 2.5 ML OPHT.BTL EACHEYE SCH (20:25)
[2018-09-27] MEDS: NS W/ 20 KCl/L 1,000 ML IV SCH (00:07)
[2018-09-27] MEDS: LEVOTHYROXINE 100 MCG TAB PO SCH (06:28)
[2018-09-27] MEDS: VANCOMYCIN 125 MG/2.5 ML UDL PO SCH ×2 (06:28→13:25)
[2018-09-27] MEDS: ACETAMINOPHEN 325 MG TAB PO PRN ×2 (06:44→18:33)
[2018-09-27] MEDS: PANTOPRAZOLE SODIUM 40 MG VIAL IVP SCH (08:16)
--- NOTE | 2018-09-27 08:26 | HOSPPROG ---
Hospitalist Progress Note Assessment/Plan: 82 yo F w/ hx of hypothyroid, microscopic colitis, and DVT/PE presents with enteritis; developed hypotension and hypoxia while here. * c diff colitis -oral vancomycin -has had a hx of this, ? if she has colonization, symptoms not the same as she has had -CT scan notes nonspecific enteritis *BRBPR -said this has been ongoing for approximately 6 months -hx of microscopic colitis -colonoscopy and EGD today -cont to have bloody stools *hypotension -bp better *ABLA -baseline hct closer to 40 -had a drop yesterday, but has not significantly dropped overnight -will place on PPI, hold Lovenox and asa *hypoxia -CTA negative for PE *hx of PE, DVT *hypothyroid -Synthroid *plan: EGD and colonoscopy today Subjective: Brody is having no pain, concerned about findings today. Objective: Vital Signs Temp Pulse Resp BP Pulse Ox 36.8 C 70 16 107/56 L 95 09/27/18 03:18 09/27/18 03:18 09/27/18 03:18 09/27/18 03:18 09/27/18 03:18 Laboratory Results 09/27/18 03:10 09/26/18 09/27/18 09/28/18 05:59 05:59 05:59 Intake Total 3089 Balance 3089 PT 12.0 SEC (12.0-15.0) 09/25/18 20:05 INR 0.92 (0.83-1.16) 09/25/18 20:05 - Physical Exam Constitutional: no apparent distress, appears nourished, not in pain Eyes: PERRL Ears, Nose, Mouth, Throat: hearing normal Cardiovascular: regular rate and rhythym Respiratory: no respiratory distress Gastrointestinal: soft, non-tender abdomen Skin: warm Musculoskeletal: generalized weakness Neurologic: AAOx3 Psychiatric: interacting appropriately ICD10 Worksheet Patient Problems: Problems Problem Status Onset Acute gastroenteritis Acute Dehydration Acute Hypotension Acute Hypoxia Acute Accidental medication overdose Acute Confusion Acute Fall Acute Fever Acute Head injury Acute Hypoxemia Acute Low back pain Acute Pneumonia Acute Pulmonary embolism Acute Troponin level elevated Acute Weakness Acute
[2018-09-27] MEDS ORDERED: ASPIRIN 81 MG CHEWABLE TAB PO SCH (09:00)
--- NOTE | 2018-09-27 10:13 | PDANEPAE ---
ANE History of Present Illness diarrhea and vomiting, known microscopic colitis and here for colonoscopy ANE Past Medical History - Cardiovascular History Hx Hypertension: No Hx Arrhythmias: No Hx Chest Pain: No Hx Coronary Artery / Peripheral Vascular Disease: No Hx CHF / Valvular Disease: No Hx Palpitations: No - Pulmonary History Hx COPD: No Hx Asthma/Reactive Airway Disease: No Hx Recent Upper Respiratory Infection: No Hx Oxygen in Use at Home: Yes O2 in Use at Home (L/minute): 2 Hx Sleep Apnea: No - Endocrine History Hx Diabetes: No Hypothyroid: Yes Hyperthyroid: No - Renal History Hx Renal Disorders: Yes Renal History Comment: decreased GFR - Liver History Hx Hepatic Disorders: No - Neurological & Psychiatric Hx Hx Neurological and Psychiatric Disorders: No - Chronic Pain History Chronic Pain: Yes (Bilateral shoulders, lower back, bilateral knees) ANE Review of Systems Review of Systems: ANE Patient History - Allergies Allergies/Adverse Reactions: celecoxib [From Celebrex] Allergy (Severe, Verified 09/25/18 19:51) Hives Penicillins Allergy (Unknown, Verified 09/26/18 09:42) Hives - Home Medications Home Medications: Gabapentin [Neurontin 100 MG (*)] 500 mg PO HS 08/23/15 [Last Taken 09/24/18] Aspirin [Aspirin 81mg (*)] 81 mg PO DAILY 09/03/16 [Last Taken 09/25/18] Bimatoprost 0.01% [Lumigan 0.01% (*)] 1 drops EACHEYE HS 09/03/16 [Last Taken ] Budesonide [Uceris] 9 mg PO DAILY 09/03/16 [Last Taken 09/25/18] Levothyroxine [Synthroid 100 mcg (*)] 100 mcg PO DAILY06 09/03/16 [Last Taken ] Simvastatin 40 mg PO HS 09/03/16 [Last Taken 09/24/18] - Smoking Hx Smoking Status: Never smoked - Alcohol Use Alcohol Use: None ANE Labs/Vital Signs - Labs Result Diagrams: 09/27/18 09:16 09/26/18 11:16 - Vital Signs Blood Pressure: 121/62 Heart Rate: 69 Respiratory Rate: 14 O2 Sat (%): 96 Height: 160.02 cm Weight: 65.799 kg ANE Physical Exam - Airway Neck exam: decreased ROM, short neck Mallampati Score: Class 3 Mouth exam: normal dental/mouth exam - Pulmonary Pulmonary: no respiratory distress, no rales or rhonchi - Cardiovascular Cardiovascular: regular rate and rhythym, no murmur, rub, or gallop - ASA Status ASA Status: III ANE Anesthesia Plan Anesthesia Plan: GA with mask Total IV Anesthesia: Yes
[2018-09-27] MEDS ORDERED: LR 1,000 ML IV ONE (10:27)
[2018-09-27] MEDS ORDERED: LIDOCAINE 2% 100 MG/5 ML SYR ONE (10:31)
[2018-09-27] MEDS ORDERED: PROPOFOL/EMULSION 500 MG/50 ML BOTTLE IV ONE (10:31)
[2018-09-27] MEDS ORDERED: fentaNYL 100 MCG/2 ML INJ ONE (10:31)
--- NOTE | 2018-09-27 11:24 | GIREPORT ---
[facility] Surgical Services - Endoscopy Department Patient Name: Chela Amador Procedure Date: 09/27/2018 10:52 AM Patient Type: Inpatient Attending MD/ ER Physician: Kisahn Thakur MD Procedure: Upper GI endoscopy Indications: Epigastric abdominal pain, Hematochezia, Nausea with vomiting Providers: Kishan Thakur MD Medicines: Propofol per Anesthesia Complications: No immediate complications. Description of Procedure: After obtaining informed consent, the endoscope was passed under direct vision. Throughout the procedure, the patient's blood pressure, pulse, and oxygen saturations were monitored continuously. The Endoscope was intro duced through the mouth, and advanced to the second part of duodenum. The [facility] er GI endoscopy was accomplished without difficulty. The patient tolerated th e procedure well. Findings: The esophagus was normal. Diffuse moderate mucosal changes characterized by nodularity were found in the gastric fundus and in the gastric body. The incisura, gastric antrum and pylorus were normal. The examined duodenum was normal. Estimated Blood Loss: Estimated blood loss: none. Post Op Diagnosis: - Normal esophagus. - Nodular mucosa in the gastric fundus and gastric body. - Normal incisura, antrum and pylorus. - Normal examined duodenum. - No specimens collected. - No cause for bleeding. Recommendation: - Perform a colonoscopy today. - Continue present medications - Diet as tolerated. - Return patient to hospital hoff for ongoing care. - Thank you for allowing me to be involved in the care of your patient. Attending Participation: I personally performed the entire procedure without the assistance of a fellow, resident or surg ical staffing assistant. Kishan Thakur MD Kishan Thakur MD 09/27/2018 11:23:36 AM This report has been signed electronicallyDavid MD Blaze Number of Addenda: 0 Note Initiated On: 09/27/2018 10:52 AM Total Procedure Duration Time 0 hours 1 minute 44 seconds [email or web address]
--- NOTE | 2018-09-27 11:46 | GIREPORT ---
[facility] Surgical Services - Endoscopy Department Patient Name: Chela Amador Procedure Date: 09/27/2018 11:20 AM Patient Type: Inpatient Attending MD/ ER Physician: Kishan Thakur MD Procedure: Colonoscopy Indications: Hematochezia, Acute post hemorrhagic anemia Providers: Kishan Thakur MD Medicines: Propofol per Anesthesia Complications: No immediate complications. Description of Procedure: After obtaining informed consent, the scope was passed under direct vis ion. Throughout the procedure, the patient's blood pressure, pulse, and oxyg en saturations were monitored continuously. The Colonoscope with irrigatio n channel was introduced through the anus and advanced to the cecum, identified by appendiceal orifice and ileocecal valve. The colonoscopy was performed without difficulty. The patient tolerated the procedure well. The quality of the bowel preparation was excellent. The ileocecal valve, appendiceal orifice, and rectum were photographed. Findings: The digital rectal exam findings include non-thrombosed external hemorrhoids. Pertinent negatives include normal sphincter tone and no palpable rectal lesions. A few small and large-mouthed diverticula were found in the sigmoid col on. Estimated Blood Loss: Estimated blood loss: none. Post Op Diagnosis: - Non-thrombosed external hemorrhoids found on digital rectal exam. - Diverticulosis in the sigmoid colon. - No specimens collected. - I find no source of hematohcezia other than hemorrhoids. - There is no evidence for C.diff colitis. Recommendation: - Repeat colonoscopy is not recommended for screening purposes. - Advance diet as tolerated. - Return patient to hospital hoff for ongoing care. - Thank you for allowing me to be involved in the care of your patient. Attending Participation: I personally performed the entire procedure without the assistance of a fellow, resident or surg ical investment sales assistant. Kishan Thakur MD Kishan Thakur MD 09/27/2018 11:46:27 AM This report has been signed electronicallyDavid MD Blaze Number of Addenda: 0 Note Initiated On: 09/27/2018 11:20 AM Total Procedure Duration Time 0 hours 14 minutes 30 seconds [email or web address]
--- NOTE | 2018-09-27 11:57 | POSTANESTH ---
Post Anesthetic Evaluation Cardiovascular Status: Normal, Stable Respiratory Status: Normal, Stable Level of Consciousness/Mental Status: Can Participate in Eval, Alert and Oriented Pain Control: Adequate, Prn Tx Ordered Nausea/Vomiting Control: Adequate, Prn Tx Ordered Complications Possibly Related to Anesthesia: None Noted
--- NOTE | 2018-09-27 14:09 | PDMN ---
Medical Necessity Medical necessity: Change to IP, as of 09/26/18, per [employer] & MCG M-170 Gastroenteritis; los >2 mn for ongoing management of C diff colitis w/ hypotension, hypoxia & BRBPR; requiring further monitoring, GI consult, IVFs & follow-up labs; hx microscopic colitis, DVT/PE
--- NOTE | 2018-09-27 14:17 | ASMTCMCOM ---
CM Note CM Note Notes: 09/27/2018 Case Management Note PT and OT recommending home care. Faxed updates to [facility]. Phone call to [facility] [phone] eileen/[place] to update. Case Management d/c poc: return to [facility] with personalize services with the addition of [facility] RN PT OT. Case Management to follow. Date Signed: 09/27/2018 02:16 PM Electronically Signed By:Vashti Birch RN
--- NOTE | 2018-09-27 21:52 | PDCONSULT ---
Forging Machine Operator Note: Technical Services Consultant brief consult Called by Dr. Nash this afternoon to evaluate pt for possible vaginal bleeding. 82 yo admitted 09/25/18 after episode of bloody diarrhea, then acute drop in H/H noted. Had neg EGD and colonoscopy today. Menses stopped around age 51. No vaginal bleeding since then. Has not been sexually active for about 3 years. Pt feels bleeding is from her rectum and not her vagina as the blood on her peripads and underwear is "towards the back". Pt does have a uterus and ovaries - no hysterectomy in her history. O: gen - pleasant female, reclining in bed, eating some dinner When removing her disposable underwear / diaper - bloody discharge noted on posterior portion of pad c/w rectal source. Pelvic exam - normal external female genitalia vagina - pale pink, atrophic, no lesions, no evidence of bleeding, narrowed introitus - allowed insertion of Kervin (narrow) speculum, but only one gloved finger comfortably on bimanual exam. cervix - atrophic, no lesions, no cervical motion tenderness, no blood at os uterus - small, mobile, NT, difficult to outline adnexa - no masses, NT No mention of adnexa or uterus on CT scan, though mention of rectosigmoid. From my limited review of CT scan, no uterine or ovarian abnormalities. Imp: 82 yo with bleeding from unknown pelvic source, though does not appear to be vaginal, or cervical in origin. If bleeding persists with unknown etiology, next step in gynecologic evaluation would be pelvic ultrasound to image uterus, endometrial stripe and ovaries, though very low suspicion that bleeding has a gynecologic etiology. Please contact [facility] - [phone] answering service to page physician space operations officer for further eval. Over 20 min spent in face to face time with the patient with > 50% counseling. Kayla Goddard MD, FACOG
[2018-09-28] MEDS: BIMATOPROST 0.01% 2.5 ML OPHT.BTL EACHEYE SCH ×2 (00:12→23:49)
[2018-09-28] MEDS: PANTOPRAZOLE SODIUM 40 MG TAB PO SCH ×3 (00:13→22:33)
[2018-09-28] MEDS: GABAPENTIN 100 MG CAP PO SCH ×2 (00:13→22:33)
[2018-09-28] MEDS: ACETAMINOPHEN 325 MG TAB PO PRN ×2 (00:13→22:34)
[2018-09-28] MEDS: LEVOTHYROXINE 100 MCG TAB PO SCH (06:15)
[2018-09-28] MEDS: HYDROCORTISONE 2.5% 30 GM CRTUBE TP SCH (09:30)
[2018-09-28] MEDS ORDERED: ACETAMINOPHEN 325 MG TAB PO ONE (09:32)
--- NOTE | 2018-09-28 09:47 | HOSPPROG ---
Hospitalist Progress Note Assessment/Plan: 82 yo F w/ hx of hypothyroid, microscopic colitis, and DVT/PE presents with enteritis; developed hypotension and hypoxia while here. *BRBPR -said this has been ongoing for approximately 6 months -hx of microscopic colitis -colonoscopy and EGD non revealing -appreciate Dr Goddard, no source seen -patient cont to "drip" from her rectum per the patient -asked Dr Stewart to re-evaluate her today *ABLA -baseline hct closer to 40 -will place on PPI, hold Lovenox and asa -will give her a unit of PRBC's with ongoing bleeding * c diff colitis (colonization) -no c diff seen during colonoscopy -will dc oral vancomycin -cont contact precautions -curb sided ID on recommendations *hypotension -much improved *hypoxia -CTA negative for PE *hx of PE, DVT *hypothyroid -Synthroid *plan: transfuse a unit of blood, Dr Stewart to see. Reviewed risks and benefits of transfusion w the family. Subjective: Chela is feeling overall fine but concerned about the ongoing bleeding. Objective: Vital Signs Temp Pulse Resp BP Pulse Ox 37.1 C 74 18 138/67 H 94 09/28/18 08:00 09/28/18 08:00 09/28/18 08:00 09/28/18 08:00 09/28/18 08:00 Laboratory Results 09/28/18 03:15 09/27/18 09/28/18 09/29/18 05:59 05:59 05:59 Intake Total 3089 1650 Output Total 700 500 Balance 3089 950 -500 PT 12.0 SEC (12.0-15.0) 09/25/18 20:05 INR 0.92 (0.83-1.16) 09/25/18 20:05 - Physical Exam Constitutional: no apparent distress, appears nourished, not in pain Eyes: PERRL Ears, Nose, Mouth, Throat: hearing normal Respiratory: no respiratory distress Skin: warm Musculoskeletal: generalized weakness Neurologic: AAOx3 Psychiatric: interacting appropriately ICD10 Worksheet Patient Problems: Problems Problem Status Onset Acute gastroenteritis Acute Dehydration Acute Hypotension Acute Hypoxia Acute Accidental medication overdose Acute Confusion Acute Fall Acute Fever Acute Head injury Acute Hypoxemia Acute Low back pain Acute Pneumonia Acute Pulmonary embolism Acute Troponin level elevated Acute Weakness Acute
[2018-09-28] MEDS: LORATADINE 10 MG PO SCH (12:26)
--- NOTE | 2018-09-28 17:22 | SOAPPROG ---
SOAP Progress Note Assessment/Plan: Assessment/Plan: Some BRBPR, along with clots, since her procedures yesterday. During her colonoscopy, Dr. Thakur saw no blood, and just diverticulosis and external hemorrhoids. Suspect bleeding is coming from the latter, although a limited bleed from diverticulosis could have occurred sometime after her procedure. Regardless, Hct stable presently. - change back to clears - serial H/H - HC 2.5% cream topically, and via anal canal, bid x 7 days - no repeat procedures needed at this time Case d/w Elsa Nash. 09/28/18 17:22 Subjective: cc: BRBPR Some BRBPR, and clots, since procedures with Dr. Thakur yesterday. No fever, rigors, chills, sweats. Objective: Vital Signs Temp Pulse Resp BP Pulse Ox 37.1 C 76 18 124/57 H 94 09/28/18 16:00 09/28/18 16:00 09/28/18 16:00 09/28/18 16:00 09/28/18 16:00 Laboratory Results 09/28/18 10:07 09/27/18 09/28/18 09/29/18 05:59 05:59 05:59 Intake Total 3089 1650 475 Output Total 700 750 Balance 3089 950 -275 PT 12.0 SEC (12.0-15.0) 09/25/18 20:05 INR 0.92 (0.83-1.16) 09/25/18 20:05 Physical Exam - Physical Exam General Appearance: WD/WN, alert, no apparent distress EENT: PERRL/EOMI, normal ENT inspection, pharynx normal, TMs normal Neck: non-tender, full range of motion, supple, normal inspection Respiratory: chest non-tender, lungs clear, normal breath sounds Cardiac/Chest: normal peripheral pulses, regular rate, rhythm Peripheral Pulses: 2+: carotid (R), carotid (L), femoral (R), femoral (L), dorsalis-pedis (R), dorsalis-pedis (L) Abdomen: normal bowel sounds, non-tender, soft Pelvic Exam: deferred Rectal: deferred Back: Normal inspection Skin: normal color, warm/dry Lymphatic: no adenopathy Extremities: normal range of motion, non-tender, normal inspection, normal capillary refill Neuro/Psych: no motor/sensory deficits, alert, normal mood/affect, oriented x 3 ICD10 Worksheet Patient Problems: Problems Problem Status Onset Acute gastroenteritis Acute Dehydration Acute Hypotension Acute Hypoxia Acute Accidental medication overdose Acute Confusion Acute Fall Acute Fever Acute Head injury Acute Hypoxemia Acute Low back pain Acute Pneumonia Acute Pulmonary embolism Acute Troponin level elevated Acute Weakness Acute
[2018-09-29] MEDS: HYDROCORTISONE 2.5% 30 GM CRTUBE TP SCH ×2 (03:28→19:44)
[2018-09-29] MEDS: LEVOTHYROXINE 100 MCG TAB PO SCH (03:28)
[2018-09-29] MEDS: LORATADINE 10 MG PO SCH (09:27)
[2018-09-29] MEDS: PANTOPRAZOLE SODIUM 40 MG TAB PO SCH (09:28)
[2018-09-29] MEDS: ACETAMINOPHEN 325 MG TAB PO PRN ×2 (10:05→22:46)
--- NOTE | 2018-09-29 13:26 | SOAPPROG ---
SOAP Progress Note Assessment/Plan: Assessment/Plan: Some pinkish blood in toilet water today, but no clots seen, and rectal with no blood on the gloved finger, with no external hemorrhoids, but rather medium- sized internal hemorrhoids felt. Hct stable. Suspect bleeding is coming from internal hemorrhoids, although a limited bleed from diverticulosis could have occurred sometime after her procedure. Regardless, Hct stable. - cardiac diet - serial H/H - change to HC suppositories bid x 5 days - no repeat procedures needed at this time - if clinically stable in A.M., ok to d/c home. I will arrange outpt. f/u for her with Dr. Thakur. If continued episodes of bleeding, he might then need to consider a small bowel pill camera endoscopy, or repeat her colonoscopy. Thanks! 09/29/18 13:21 Subjective: cc: BRBPR Just had a b.m.; in the toilet is pinkish-tinged water, without clots. No rigors, chills, sweats. Hungry. Objective: Vital Signs Temp Pulse Resp BP Pulse Ox 37.4 C 70 16 122/61 H 92 09/29/18 11:14 09/29/18 11:14 09/29/18 11:14 09/29/18 11:14 09/29/18 11:14 Laboratory Results 09/29/18 03:05 09/28/18 09/29/18 09/30/18 05:59 05:59 05:59 Intake Total 1650 675 Output Total 700 1350 Balance 950 -675 PT 12.0 SEC (12.0-15.0) 09/25/18 20:05 INR 0.92 (0.83-1.16) 09/25/18 20:05 Physical Exam - Physical Exam General Appearance: WD/WN, alert, no apparent distress EENT: PERRL/EOMI, normal ENT inspection, pharynx normal, TMs normal Neck: non-tender, full range of motion, supple, normal inspection Respiratory: chest non-tender, lungs clear, normal breath sounds Cardiac/Chest: normal peripheral pulses, regular rate, rhythm Peripheral Pulses: 2+: carotid (R), carotid (L), femoral (R), femoral (L), dorsalis-pedis (R), dorsalis-pedis (L) Abdomen: normal bowel sounds, non-tender, soft Pelvic Exam: deferred Rectal: hemorrhoids (Internal, medium in size. No external hemorrhoids or fissure. No blood on the gloved finger.) Back: Normal inspection Skin: normal color, warm/dry Lymphatic: no adenopathy Extremities: normal range of motion, non-tender, normal inspection, normal capillary refill Neuro/Psych: no motor/sensory deficits, alert, normal mood/affect, oriented x 3 ICD10 Worksheet Patient Problems: Problems Problem Status Onset Acute gastroenteritis Acute Dehydration Acute Hypotension Acute Hypoxia Acute Accidental medication overdose Acute Confusion Acute Fall Acute Fever Acute Head injury Acute Hypoxemia Acute Low back pain Acute Pneumonia Acute Pulmonary embolism Acute Troponin level elevated Acute Weakness Acute
--- NOTE | 2018-09-29 15:40 | ASMTCMCOM ---
CM Note CM Note Notes: Patient was cleared by GI for d/c but had diarrhea today and is feeling anxious. She will transition back to [facility] and will hopefully be ready for d/c tomorrow. I have let [facility] agency know that she may d/c tomorrow. Current CM Discharge plan: home with [facility] - PT/OT/RN Date Signed: 09/29/2018 03:39 PM Electronically Signed By:Cecilia Jaramillo RN
[2018-09-29] MEDS ORDERED: LOPERAMIDE HCL 2 MG CAP PO PRN (15:48)
--- NOTE | 2018-09-29 15:56 | HOSPPROG ---
Hospitalist Progress Note Assessment/Plan: DIAGNOSES: * Acute gastroenteritis with vomiting and diarrhea * Lower GI bleed likely either diverticular or hemorrhoidal bleeding triggered by above; no other source of bleeding identified on colonoscopy or EGD * Dehydration * Iron deficiency anemia with no identified cause on upper and lower endoscopy, suspect chronic hemorrhoidal bleeding may be the cause as she endorses this * Chronic diarrhea of microscopic colitis * History of PE * History of gait instability and falls * Colonization with C difficile identified here but no evidence of C diff colitis on colonoscopy At this time she has stopped bleeding. She is also no longer having nausea or vomiting. However she continues have voluminous watery diarrhea and her ability to take in fluids is somewhat limited. Between her anemia and potential to become dehydrated again as well as her history of gait instability and falls it would be unsafe to trying get her home at this time without ensuring that she is going to be able to maintain hydration. PLANS: * Switch back to clear liquid diet at this time to minimize triggering more diarrhea * At anti diarrheal * Add iron replacement therapy and will discharge to home on this, should have her iron checked in a few weeks * Discharge her to home when she is clearly going to be able to make to an adequate hydration for safety * Will not be using anticoagulant for DVT prophylaxis given her bleeding and her significant anemia; SCDs and ambulation as prophylaxis SUBJECTIVE: Feeling better overall Able to take in some liquids and some solid food both in small amounts, poor appetite but not nauseous However had very voluminous watery diarrhea today OBJECTIVE Vitals reviewed: So far stable without fever Anesthesiologist Physician, my review: Exam: alert oriented skin warm dry color ok, no rash resps not labored lungs clear BSs heart regular abd soft nondistended nontender, bowel sounds present limbs warm, no edema iv site ok Lab data: Hemoglobin down a bit this morning at 8.8 from last evening which was 9.5 Iron binding saturation low at 16 and ferritin on the low side at 22 Objective: Vital Signs Temp Pulse Resp BP Pulse Ox 37.4 C 70 16 122/61 H 92 09/29/18 11:14 09/29/18 11:14 09/29/18 11:14 09/29/18 11:14 09/29/18 11:14 Laboratory Results 09/29/18 03:05 09/28/18 09/29/18 09/30/18 06:59 06:59 06:59 Intake Total 1650 675 Output Total 700 1350 Balance 950 -675 PT 12.0 SEC (12.0-15.0) 09/25/18 20:05 INR 0.92 (0.83-1.16) 09/25/18 20:05 ICD10 Worksheet Patient Problems: Problems Problem Status Onset Acute gastroenteritis Acute Dehydration Acute Hypotension Acute Hypoxia Acute Accidental medication overdose Acute Confusion Acute Fall Acute Fever Acute Head injury Acute Hypoxemia Acute Low back pain Acute Pneumonia Acute Pulmonary embolism Acute Troponin level elevated Acute Weakness Acute
[2018-09-29] MEDS: HYDROCORTISONE ACETATE 25 MG SUPP PR SCH ×2 (18:26→22:19)
[2018-09-29] MEDS: GABAPENTIN 100 MG CAP PO SCH (22:46)
[2018-09-29] MEDS: BIMATOPROST 0.01% 2.5 ML OPHT.BTL EACHEYE SCH (22:46)
[2018-09-29] MEDS: FERRO-SEQUELS 65 MG TAB.ER PO SCH (22:46)
[2018-09-30] MEDS: FLUTICASONE NASAL 120 SPRAYS/16 GM MDI EACHNARE SCH ×2 (00:22→11:28)
[2018-09-30] MEDS: LEVOTHYROXINE 100 MCG TAB PO SCH (04:38)
[2018-09-30] MEDS ORDERED: SODIUM FERRIC GLUCONAT/SUCROSE 125 MG in NS 100 ML IV ONE (10:10)
[2018-09-30] MEDS: HYDROCORTISONE ACETATE 25 MG SUPP PR SCH ×2 (11:27→21:14)
[2018-09-30] MEDS: FERRO-SEQUELS 65 MG TAB.ER PO SCH ×2 (11:28→21:13)
[2018-09-30] MEDS: LORATADINE 10 MG PO SCH (11:28)
--- NOTE | 2018-09-30 11:41 | SOAPPROG ---
SOAP Progress Note Assessment/Plan: Assessment/Plan: No further significant bleeding. Suspect bleeding is coming from internal hemorrhoids, although a limited bleed from diverticulosis could have occurred sometime after her procedure. Regardless, Hct stable. I will sign off. I will arrange outpt. f/u for her with Dr. Thakur. If continued episodes of bleeding, he might then need to consider a small bowel pill camera endoscopy, especially considering the degree of her anemia, or repeat her colonoscopy. Thanks! 09/30/18 11:39 Subjective: cc: BRBPR Latest bm without blood. No rigors, chills, sweats, vomiting. She states she's had on and off rectal bleeding for years. Objective: Vital Signs Temp Pulse Resp BP Pulse Ox 37.1 C 77 16 139/67 H 94 09/30/18 11:09 09/30/18 11:09 09/30/18 11:09 09/30/18 11:09 09/30/18 11:09 Laboratory Results 09/30/18 03:05 09/29/18 09/30/18 10/01/18 05:59 05:59 05:59 Intake Total 675 475 Output Total 1350 Balance -675 475 PT 12.0 SEC (12.0-15.0) 09/25/18 20:05 INR 0.92 (0.83-1.16) 09/25/18 20:05 Physical Exam - Physical Exam General Appearance: WD/WN, alert, no apparent distress EENT: PERRL/EOMI, normal ENT inspection, pharynx normal, TMs normal Neck: non-tender, full range of motion, supple, normal inspection Respiratory: chest non-tender, lungs clear, normal breath sounds Cardiac/Chest: normal peripheral pulses, regular rate, rhythm Peripheral Pulses: 2+: carotid (R), carotid (L), femoral (R), femoral (L), dorsalis-pedis (R), dorsalis-pedis (L) Abdomen: normal bowel sounds, non-tender, soft Pelvic Exam: deferred Rectal: deferred Back: Normal inspection Skin: normal color, warm/dry Lymphatic: no adenopathy Extremities: normal range of motion, non-tender, normal inspection, normal capillary refill Neuro/Psych: no motor/sensory deficits, alert, normal mood/affect, oriented x 3 ICD10 Worksheet Patient Problems: Problems Problem Status Onset Acute gastroenteritis Acute Dehydration Acute Hypotension Acute Hypoxia Acute Accidental medication overdose Acute Confusion Acute Fall Acute Fever Acute Head injury Acute Hypoxemia Acute Low back pain Acute Pneumonia Acute Pulmonary embolism Acute Troponin level elevated Acute Weakness Acute
[2018-09-30] MEDS: ACETAMINOPHEN 325 MG TAB PO PRN (17:45)
--- NOTE | 2018-09-30 19:45 | HOSPPROG ---
Hospitalist Progress Note Assessment/Plan: DIAGNOSES: * Acute gastroenteritis with vomiting and diarrhea - this appears resolved * Acute Lower GI bleed with Hypotension (82/42) that lasted several hours on admission -diverticuli and internal hemorrhoids noted on colonoscopy, no other findings on EGD or colonosc - likely due to one of these -does give hx of ongoing intermittent rectal blood, but this is by far most significant bleeding she's had * Acute post-hemorrhagic anemia requiring RBC transfusion 1 given so far (bled from Hg 13 on 09/18 to 7 this admit) * Iron deficiency indicates chronic issue from intermittent lower gi bleed (low Fe bind sat, low ferritin, high RDW) * Chronic mild diarrhea of microscopic colitis - present for many years, and now appears likely back to this baseline * History of PE * History of gait instability and falls * Colonization with C difficile identified here but no evidence of C diff colitis on colonoscopy (contact isolation here for this reason) As she had a significant recurrence of blood today, will watch here again overnight and repeat Hg in am. Would predict this episode of bleeding will stop like her past episodes, but with hemorrhoid or diverticular source could keep bleeding, has bled notably for 6 consecutive days now. Given her iron deficiency and her gait instability with past falls, will want to be confident she is going to be safe from anemia/orthostasis standpoint. If bleeding persists wound consider hemorrhoidal banding or and intervention for diverticular bleed, but so far unable to nail down source. If has more significant bleed ? consider imaging study, though bleeding so far comes intermittently here. PLANS: * monitor for any recurrent bleed, repeat Hg in am * consider home 10/01 if now more bleed and numbers stable * continue regular diet for now * antidiarrheal for gastroenteritis * one dose of IV iron given and on oral now * Will not be using anticoagulant for DVT prophylaxis given her bleeding and her significant anemia; SCDs and ambulation as prophylaxis Seen by me on hospitalist rounds as well as multidisc rounds, 3 visits total today. SUBJECTIVE: Overall feeling better today. Has been able to eat some solid food, so far with no explosive diarrhea, seems back to her usual microscopic colitis pattern. However, did pass a large volume of bright red blood per rectum this am (I was able to see). Again no abdominal or rectal/anal pain. No recurrent bleeding so far today. OBJECTIVE Vitals reviewed: So far stable without fever Senior Visual Designer, my review: Exam: alert oriented skin warm dry color ok, no rash resps not labored lungs clear BSs heart regular abd soft nondistended nontender, bowel sounds present limbs warm, no edema iv site ok Lab data: Hemoglobin is fluctuating a fair bit likely due to fluid shifts Iron binding saturation low at 16 and ferritin on the low side at 22 Objective: Vital Signs Temp Pulse Resp BP Pulse Ox 36.8 C 84 16 145/72 H 94 09/30/18 15:02 09/30/18 15:02 09/30/18 15:02 09/30/18 15:02 09/30/18 15:02 Laboratory Results 09/30/18 16:08 09/29/18 09/30/18 10/01/18 06:59 06:59 06:59 Intake Total 675 475 425 Output Total 1350 Balance -675 475 425 PT 12.0 SEC (12.0-15.0) 09/25/18 20:05 INR 0.92 (0.83-1.16) 09/25/18 20:05 - Time Spent With Patient Time Spent with Patient: greater than 35 minutes Time Spent with Patient: Greater than 35 minutes spent on this patients care, greater than 50% of time spent counseling, educating, and coordinating care regarding the above mentioned plan. ICD10 Worksheet Patient Problems: Problems Problem Status Onset Acute gastroenteritis Acute Dehydration Acute Hypotension Acute Hypoxia Acute Accidental medication overdose Acute Confusion Acute Fall Acute Fever Acute Head injury Acute Hypoxemia Acute Low back pain Acute Pneumonia Acute Pulmonary embolism Acute Troponin level elevated Acute Weakness Acute
[2018-09-30] MEDS: GABAPENTIN 100 MG CAP PO SCH (21:13)
[2018-09-30] MEDS: BIMATOPROST 0.01% 2.5 ML OPHT.BTL EACHEYE SCH (21:14)
[2018-10-01] MEDS: ACETAMINOPHEN 325 MG TAB PO PRN (00:22)
[2018-10-01] MEDS: LEVOTHYROXINE 100 MCG TAB PO SCH (06:10)
[2018-10-01 08:03] VITALS: BP 127/67
[2018-10-01] MEDS: FLUTICASONE NASAL 120 SPRAYS/16 GM MDI EACHNARE SCH (10:08)
[2018-10-01] MEDS: HYDROCORTISONE ACETATE 25 MG SUPP PR SCH (10:08)
[2018-10-01] MEDS: FERRO-SEQUELS 65 MG TAB.ER PO SCH (10:08)
[2018-10-01] MEDS: LORATADINE 10 MG PO SCH (10:09)
--- NOTE | 2018-10-01 10:31 | PDIAF ---
- Diagnosis Diagnosis: GIB Code Status: Full Code - Medication Management Discharge Medications: electronically signed and located in the Home Medication List. - Orders Services needed: Home Care, Registered Nurse, Physical Therapy, Occupational Therapy Home Care Face to Face: I certify that this patient was under my care and that I had the required [id number] encounter meeting the encounter requirements on the discharge day. My findings support the fact that the patient is homebound as defined in Home Care Face to Face Continued: CMS Chapter 7 Medicare Benefits Manual 30.1.1 , The condition of the patient is such that there exists a normal inability to leave home and consequently, leaving home would require a considerable and taxing effort. Isolation Type: CDIFF Isolation, Contact Isolation - Follow Up Care Current Providers and Referrals: Yessi Sampson MD [Primary Care Provider] - As per Instructions Kishan Thakur MD [Medical Doctor] -
--- NOTE | 2018-10-01 12:25 | ASMTDCNOTE ---
Case Management Discharge Discharge Order Complete? Answers: Yes Transportation Arranged Answers: Other Notes: [facility] w/c transport Transport will Pick (Date 10/01/2018 12:30 PM & Time) EMTALA Complete Answers: No Case Management Transport Answers: No Form Complete Faxed Final Orders Answers: Yes Agency/Facility Transfer Answers: Yes Report Printed & Faxed to Receiving Agency Family Notified Answers: No Discharge Comments Notes: Pts case discussed in tx rounds. Pt is being d/c'd today back to [facility]. DC orders sent to [facility] . CM arranged transportation w/ [facility]. CM available for changes. Plan: [facility] ; PT, OT, RN Date Signed: 10/01/2018 12:24 PM Electronically Signed By:ZO Rodriguez
--- NOTE | 2018-10-01 12:26 | ASDISCHSUM ---
Discharge Information Plan Status:Home with Home Health Medically Cleared to Leave:10/01/2018 Discharge Date:10/01/2018 CM D/C Disposition: ADT D/C Disposition: Projected Discharge Date:10/01/2018 11:00 AM Transportation at D/C: Discharge Delay Reason: Follow-Up Date:10/01/2018 11:00 AM Discharge Slot: Final Diagnosis: Placement Information Referral Type:Assisted Living Residence Referral ID:[id number] Provider Name: Address 1: Phone Number: Address 2: Fax Number: City: Selection Factors: State: Referral Type:*Home Health Care Services Referral ID:[id number] Provider Name:[facility] Address 1[address] Address 2: City:[place] Selection Factors: State:[place] Patient Contact Information Contact Name:RUPAL Relationship:Daughter Address:[address] [place] [address] Work Phone: City:[place] Alternate Phone: [facility]/Zip Code:[place] [address] Email: Financial Information Financial Class:Medicare Primary Plan Desc:MEDICARE INPATIENT Primary Plan Number:[id number] Secondary Plan Desc:[facility] Secondary Plan Number:[id number] Assessment Information LACE LACE Length of stay for Answers: 4-6 days current admission Acuity / Level of Answers: Yes Care: Did the patient have an inpatient admission? Comorbidities - select Answers: Opioid dependence all that apply / Chronic pain Other Notes: HLD; PE; Hypothyroid # of Emergency department Answers: 3-4 visits in the last 6 months Social determinants Answers: Mental health diagnosis (anxiety, depression, pers onality disorders, etc.) Score: 18 Date Signed: 10/01/2018 12:25 PM Electronically Signed By:ZO Rodriguez [facility] CM Progress Note CM Note CM Note Notes: 09/26/2018 Case Management Note Pt admitted for hypotension, vomiting and diarrhea. Met w/daughter Caro [phone]. Requested [facility] paperwork. Phone call from [facility] with [place] [phone]. Pt resides in [place] but has purchased services that include help with showers, dressing and getting ready for bed. [facility] requested OT and PT evals to assess for home health needs. If home health is recommended pt will use [facility]. Faxed updates to [facility] through [employer]. Pt has previous SNF rehab stay at [facility]. Case Management d/c poc: to be determined. Case Management to follow. Date Signed: 09/26/2018 03:12 PM Electronically Signed By:Vashti Birch RN [facility] CM Progress Note CM Note CM Note Notes: 09/27/2018 Case Management Note PT and OT recommending home care. Faxed updates to [facility]. Phone call to [facility] [phone] eileen/Vinicio to update. Case Management d/c poc: return to [facility] with personalize services with the addition of [facility] RN PT OT. Case Management to follow. Date Signed: 09/27/2018 02:16 PM Electronically Signed By:Vashti Birch RN [facility] CM Progress Note CM Note CM Note Notes: Patient was cleared by GI for d/c but had diarrhea today and is feeling anxious. She will transition back to [facility] and will hopefully be ready for d/c tomorrow. I have let [facility] agency know that she may d/c tomorrow. Current CM Discharge plan: home with [facility] - PT/OT/RN Date Signed: 09/29/2018 03:39 PM Electronically Signed By:Cecilia Jaramillo RN Case Management Discharge Plan Note Case Management Discharge Discharge Order Complete? Answers: Yes Transportation Arranged Answers: Other Notes: [facility]/ transport Transport will Pick (Date 10/01/2018 12:30 PM & Time) EMTALA Complete Answers: No Case Management Transport Answers: No Form Complete Faxed Final Orders Answers: Yes Agency/Facility Transfer Answers: Yes Report Printed & Faxed to Receiving Agency Family Notified Answers: No Discharge Comments Notes: Pts case discussed in tx rounds. Pt is being d/c'd today back to [facility]. DC orders sent to [facility]. CM arranged transportation w/ [facility]. CM available for changes. Plan: [facility]; PT, OT, RN Date Signed: 10/01/2018 12:24 PM Electronically Signed By:ZO Rodriguez Intervention Information Intervention Type:*IM-Signed Date of Service:09/30/2018 10:48 AM Patient Type:Inpatient Staff Member:Nola Welsh Hours: Discipline: Severity: Comment:
--- NOTE | 2018-10-01 14:48 | PDDCSUM ---
Discharge Summary Discharge Summary: Date of Admission: 09/26/2018 Date of Discharge: 10/01/2018 Consults: GI Procedures: EGD/Colonoscopy Followup: PCP, GI Hospital Course Problem List: * Acute gastroenteritis with vomiting and diarrhea - this appears resolved * Acute Lower GI bleed with Hypotension (82/42) that lasted several hours on admission -diverticuli and internal hemorrhoids noted on colonoscopy, no other findings on EGD or colonoscopy - likely due to one of these -does give hx of ongoing intermittent rectal blood, but this is by far most significant bleeding she's had * Acute post-hemorrhagic anemia requiring RBC transfusion 1 given so far (bled from Hg 13 on 09/18 to 7 this admit) * Iron deficiency indicates chronic issue from intermittent lower gi bleed (low Fe bind sat, low ferritin, high RDW), continue PO iron upon discharge * 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
[2018-10-02] MEDS ORDERED: FERROUS SULFATE 325 MG TAB PO SCH (09:00)
== END 2018-10-01 12:33 | disposition home health service (06) | DRG 392 ==
LOC: F2W 09-26 02:34 → OBSVTOIN 09-26 16:57
PROVIDERS: ADMIT Student in an Organized Health Care Education/Training Program; ATTEND Student in an Organized Health Care Education/Training Program
DX: K52.9 Noninfective gastroenteritis and colitis, unspecified (principal); D62 Acute posthemorrhagic anemia; E03.9 Hypothyroidism, unspecified; Z96.652 Presence of left artificial knee joint; E78.5 Hyperlipidemia, unspecified; H40.9 Unspecified glaucoma; Z86.711 Personal history of pulmonary embolism; Z86.718 Personal history of other venous thrombosis and embolism; G89.29 Other chronic pain; Z87.440 Personal history of urinary (tract) infections; Z91.81 History of falling; Z98.1 Arthrodesis status
CPT/HCPCS: 96374; 97116-GP; 97161-GP; 97165-GO; 97530-GO; 97535-GO; J1650; J1885; J2001; J2405; J2704; J2916; J3010; P9016; Q9967

== ENCOUNTER → 2018-11-05 | Outpatient (CLI) | payer OTHER | LOC: BMCIMAGING 13:31 | PROVIDERS: ATTEND Physician Assistant | DX: M17.11 Unilateral primary osteoarthritis, right knee (principal); M25.461 Effusion, right knee ==

== ENCOUNTER → 2018-11-27 | Outpatient (CLI) | payer OTHER | LOC: BMCIMAGING 14:57 ==

== ENCOUNTER 2018-12-09 11:03 | Inpatient (IN) | payer OTHER | END 2018-12-13 15:30 | disposition home health service (06) | LOC: F3E 13:15 ==